=== PATIENT | female | born 1965 | race Caucasian/White ===

== ENCOUNTER 2019-01-06 23:17 | Inpatient (IN) | payer MEDICARE, OTHER ==
[~2019-01-06] VITALS: Ht 165.1 cm; Wt 53.2 kg
[2019-01-07] VITALS (7 sets, daily range): BP systolic 100–138; BP diastolic 61–81; PULSE 16–98; RESP 17–18; Ht 165.1 cm; Wt 53.2 kg
[2019-01-07] MEDS ORDERED: LEVETIRACETAM 1000 MG (PMX) 100 ML IVPB ONE (01:30)
--- NOTE | 2019-01-07 02:04 | ERD ---
ER Documentation Chief Complaint Chief Complaint BIB RA102, C/O POSS. SEIZURE, HX SEIZURES/BRAIN TUMOR, -DOWNS, +NAUSEA, -VOMIT HPI This is a 48-year-old female brought in by rescue with complaints of seizure. Patient has history of brain tumor in the past. She said she had multiple seizures today. She said this also made her feel "weird". She denies any focal neurologic complaints. Denies any tongue biting or incontinence. Denies any other current issues. ROS All systems reviewed and are negative except as per history of present illness. Allergies Allergies: Coded Allergies: phenytoin (Verified Allergy, Unknown, 01/06/19) PMhx/Soc History of Surgery: Yes (BRAIN TUMOR) Anesthesia Reaction: No Hx Neurological Disorder: Yes (SEIZURES) Hx Respiratory Disorders: No Hx Cardiac Disorders: No Hx Psychiatric Problems: No Hx Miscellaneous Medical Probl: No Hx Alcohol Use: No Hx Substance Use: No Hx Tobacco Use: No Smoking Status: Never smoker Physical Exam Vitals Vital Signs Date Temp Pulse Resp B/P (MAP) Pulse Ox O2 O2 Flow FiO2 Time Delivery Rate 01/07/19 94 14 157/90 98 Room Air 01:00 (112) 01/06/19 98.0 108 12 157/128 98 23:17 (138) Physical Exam Const: No acute distress Head: Atraumatic Eyes: Normal Conjunctiva ENT: Normal External Ears, Nose and Mouth. Neck: Full range of motion. No meningismus. Resp: Clear to auscultation bilaterally Cardio: Regular rate and rhythm, no murmurs Abd: Soft, non tender, non distended. Normal bowel sounds Skin: No petechiae or rashes Back: No midline or flank tenderness Ext: No cyanosis, or edema Neur: Awake and alert Psych: Normal Mood and Affect Result Diagram: 01/06/19232701/06/192327 Results 24 hrs Laboratory Tests Test 01/06/19 23:28 01/06/19 23:48 White Blood Count 6.1 10^3/ul Red Blood Count 4.37 10^6/ul Hemoglobin 13.7 g/dl Hematocrit 42.5 % Mean Corpuscular Volume 97.3 fl Mean Corpuscular Hemoglobin 31.4 pg Mean Corpuscular Hemoglobin Concent 32.2 g/dl Red Cell Distribution Width 12.0 % Platelet Count 219 10^3/UL Mean Platelet Volume 11.5 fl Immature Granulocytes % 0.200 % Neutrophils % 49.0 % Lymphocytes % 37.1 % Monocytes % 9.8 % Eosinophils % 2.9 % Basophils % 1.0 % Nucleated Red Blood Cells % 0.0 /100WBC Immature Granulocytes # 0.010 10^3/ul Neutrophils # 3.0 10^3/ul Lymphocytes # 2.3 10^3/ul Monocytes # 0.6 10^3/ul Eosinophils # 0.2 10^3/ul Basophils # 0.1 10^3/ul Nucleated Red Blood Cells # 0.0 10^3/ul Sodium Level 142 mmol/L Potassium Level 4.2 mmol/L Chloride Level 103 mmol/L Carbon Dioxide Level 30 mmol/L Anion Gap 9 Blood Urea Nitrogen 24 mg/dl Creatinine 0.59 mg/dl Est Glomerular Filtrat Rate mL/min > 60 mL/min Glucose Level 125 mg/dl Calcium Level 10.2 mg/dl Total Bilirubin 0.3 mg/dl Direct Bilirubin 0.00 mg/dl Indirect Bilirubin 0.3 mg/dl Aspartate Amino Transf (AST/SGOT) 40 IU/L Alanine Aminotransferase (ALT/SGPT) 57 IU/L Alkaline Phosphatase 97 IU/L Troponin I < 0.012 ng/ml B-Type Natriuretic Peptide 33 PG/ML Total Protein 7.6 g/dl Albumin 4.6 g/dl Globulin 3.00 g/dl Albumin/Globulin Ratio 1.53 Bedside Glucose 97 mg/dL Current Medications Medications Dose Sig/Cory Start Time Status Last (Trade) Ordered Route PRN Stop Time Admin Dose Reason Admin 100 ml @ ONCE ONCE 01/07/19 DC Levetiracetam 400 mls/hr IVPB 01:30 01/07/19 01:44 Procedures/MDM EKG: Rate/Rhythm: [Normal Sinus Rhythm] QRS, ST, T-waves: [No changes consistent w/ acute ischemia] Impression: [No evidence of ischemia or arrhythmia] Chest X-ray 1V Interpreted by me: Soft Tissue: No acute abnormalities Bones: No acute abnormalities Mediastinum/Cardiac Silhouette/Lungs: [No acute abnormalities] Medical decision making: This is a very pleasant patient with multiple seizures today. She is been loaded with Keppra. Given her multiple seizures, I feel the patient is to be admitted for evaluation management. I will notify Dr. Dillon is on-call for Dr. Bard villar who the patient knows. Departure Diagnosis: Primary Impression: Seizure disorder Condition: Serious JUN MENJIVAR SpeedyRicky Jan 07, 2019 02:04
[2019-01-07] MEDS ORDERED: BACL20TA PO (07:14)
[2019-01-07] MEDS ORDERED: GABA300C16 PO (07:14)
[2019-01-07] MEDS ORDERED: MIRA50TA PO (07:15)
[2019-01-07] MEDS ORDERED: SOLI10TA2 PO (07:15)
[2019-01-07] MEDS ORDERED: [UNRECOGNIZED DRUG - CODE] PO (07:15)
[2019-01-07] MEDS ORDERED: ACETAMINOPHEN 325 MG TAB PO PRN (11:30)
[2019-01-07] MEDS ORDERED: LORAZEPAM 2 MG INJ IV PRN (11:30)
[2019-01-07] MEDS ORDERED: NON-FORMULARY/PATIENT OWN MED (Mirabegron (Myrbetriq) 50 MG) PO SCH (12:30)
--- NOTE | 2019-01-07 12:43 | HP ---
Date/Time of Note Date/Time of Note DATE: 01/07/19 TIME: 12:27 Assessment/Plan VTE Prophylaxis SCD applied (from Ns): Yes Pharmacological prophylaxis: NA/contraindicated Pharm contraindication: other Assessment/Plan Assessment/Plan -Seizure disorder. Continue Christal, Dr. Duran is asked to see patient in neurology consultation. Will obtain MRI of the brain. 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 -R sided paralysis Further recommendations based on clinical course. Plan of care discussed with Dr. Cassidy. Result Diagram: 01/06/198 01/06/198 Results 24hrs Laboratory Tests Test 01/06/19 23:28 01/06/19 23:48 White Blood Count 6.1 Red Blood Count 4.37 Hemoglobin 13.7 Hematocrit 42.5 Mean Corpuscular Volume 97.3 Mean Corpuscular Hemoglobin 31.4 Mean Corpuscular Hemoglobin Concent 32.2 Red Cell Distribution Width 12.0 Platelet Count 219 Mean Platelet Volume 11.5 H Immature Granulocytes % 0.200 Neutrophils % 49.0 Lymphocytes % 37.1 Monocytes % 9.8 Eosinophils % 2.9 Basophils % 1.0 Nucleated Red Blood Cells % 0.0 Immature Granulocytes # 0.010 Neutrophils # 3.0 Lymphocytes # 2.3 Monocytes # 0.6 Eosinophils # 0.2 Basophils # 0.1 Nucleated Red Blood Cells # 0.0 Sodium Level 142 Potassium Level 4.2 Chloride Level 103 Carbon Dioxide Level 30 Anion Gap 9 Blood Urea Nitrogen 24 H Creatinine 0.59 Est Glomerular Filtrat Rate mL/min > 60 Glucose Level 125 Calcium Level 10.2 Total Bilirubin 0.3 Direct Bilirubin 0.00 Indirect Bilirubin 0.3 Aspartate Amino Transf (AST/SGOT) 40 Alanine Aminotransferase (ALT/SGPT) 57 Alkaline Phosphatase 97 Troponin I < 0.012 B-Type Natriuretic Peptide 33 Total Protein 7.6 Albumin 4.6 Globulin 3.00 Albumin/Globulin Ratio 1.53 Bedside Glucose 97 HPI/ROS Admit Date/Time Admit Date/Time Jan 07, 2019 at 01:29 Hx of Present Illness The patient is a 53-year-old very pleasant female with history of brain tumor status post surgery and radiation in 1995. Patient with right-sided paralysis, urinary incontinence and wheelchair dependent. Patient noted to have some speech impairment last night she contributed to new onset of seizures. During the examination patient is awake alert, and oriented x3. Patient's parents are at the bedside, did state that they spoke on the phone with her daughter and her speech was not coherent last night, however, right now patient is at her baseline. Patient denies any chest pain denies shortness of breath denies any fever, chills denies any nausea vomiting, denies diarrhea constipation. PMH/Family/Social Past Medical History per HPI Medications Current Medications Lorazepam (Ativan) 1 mg Q1H PRN IV SEIZURE; Start 01/07/19 at 11:30 Acetaminophen (Tylenol Tab) 650 mg Q4H PRN PO MILD PAIN(1-3)OR ELEVATED TEMP; Start 01/07/19 at 11:30 Levetiracetam 100 ml @ 400 mls/hr Q12 IVPB ; Start 01/07/19 at 21:00 Coded Allergies: phenytoin (Verified Allergy, Unknown, 01/07/19) Past Surgical History Past Surgical Hx: other (Status post craniotomy and radiation in 1995, status post plastic surgery due to protruded hardware over the head 2 years ago.) Social History Alcohol Use: none Smoking Status: Never smoker Drug Use: none Exam/Review of Systems Vital Signs Vitals Vital Signs Date Temp Pulse Resp B/P (MAP) Pulse Ox O2 O2 Flow FiO2 Time Delivery Rate 01/07/19 98.0 93 18 138/81 99 11:54 (100) 01/07/19 Room Air 09:44 Exam Constitutional: alert, oriented Head: normocephalic Neck: supple Respiratory: clear to auscultation Cardiovascular: regular rate and rhythm Gastrointestinal: soft, non-tender Musculoskeletal: nl extremities to inspection Extremities: normal pulses Neurological: other (Right-sided paralysis) Skin: nl ZINA Cardoso Jan 07, 2019 12:37
[2019-01-07] MEDS: SOLIFENACIN 5 MG TAB PO SCH (13:14)
[2019-01-07] MEDS: GABAPENTIN 300 MG CAP PO SCH ×3 (13:14→20:24)
[2019-01-07] MEDS: FOLIC ACID 1 MG TAB PO SCH (13:27)
[2019-01-07] MEDS ORDERED: DESMOPRESSIN 0.1 MG TAB PO SCH (14:00)
--- NOTE | 2019-01-07 14:39 | CONSI ---
Assessment/Plan Assessment/Plan Assessment/Plan (Recall) 53 yo F with hx of brain tumor and other comorbidities who presents for evaluation of transient and episode L sided weakness... for which neurology is consulted. The clinical picture could be consistent with TIA vs. seizure. CTH is without acute intracranial pathology though notable for post-surgical changes P: MRI brain without contrast for further characterization EEG to evaluate for epileptiform activity ASA pending the above Hold Keppra for now Ativan IV PRN prolonged seizure or for cluster Cont medical management per primary PT/OT/ST as necessary Will follow clinically, to recommend neurologic studies, as necessary Consultation Date/Type/Reason Admit Date/Time Jan 07, 2019 at 01:29 Type of Consult Neurology Reason for Consultation seizure Requesting Provider: ZINA IBARRA Date/Time of Note DATE: 01/07/19 TIME: 14:39 Hx of Present Illness 53 yo F with hx of brain tumor s/p surgery and radiation with residual R hemiparesis who presented to the ED with c/o of seizures. History was obtained from pt and chart review. The pt states that yesterday she was talking when she noticed that her speech was impaired and that her L side became heavy. Out of concern for possible seizure, she was taken to the ED. She states that around 3 this morning, a similar episode happened where her L side became heavy and she was unable to mo ve it. She states that she was able to move it again after she received keppra. She currently endorses feeling weak and tired. Denies focal sx currently. It is additionally elsewhere noted: Hx of Present Illness The patient is a 53-year-old very pleasant female with history of brain tumor status post surgery and radiation in 1995. Patient with right-sided paralysis, urinary incontinence and wheelchair dependent. Patient noted to have some speech impairment last night she contributed to new onset of seizures. During the examination patient is awake alert, and oriented x3. Patient's parents are at the bedside, did state that they spoke on the phone with her daughter and her speech was not coherent last night, however, right now patient is at her baseline. Patient denies any chest pain denies shortness of breath denies any fever, chills denies any nausea vomiting, denies diarrhea constipation. negative unless noted otherwise in HPI: Objective Exam Vitals Vital Signs Date Temp Pulse Resp B/P (MAP) Pulse Ox O2 O2 Flow FiO2 Time Delivery Rate 01/07/19 92 12:00 01/07/19 98.0 18 138/81 99 11:54 (100) 01/07/19 Room Air 09:44 Exam PE: Gen Appearance: No Apparent Distress HEENT: Normocephalic Cardiovascular: Regular rate Lungs: Clear bilaterally Abdomen: Soft Extremities: Dry NE: The patient was alert and oriented. Language was normal. Fund of knowledge was normal. Pupils were equal and reactive to light. There was no afferent pupillary defect. Visual peters were normal. Funduscopic examination was limited. Extra-ocular movements were full. Ptosis was absent. There was no nystagmus. Facial sensation was normal. Face was symmetric with normal strength. Hearing was intact. Palate movements were normal. Neck strength was normal. There was normal tongue bulk and speed of movement. Tone was normal. Muscle bulk was normal. I did not see fasciculations. Arms and legs were plegic on the R, mildly weak on the L. Vibration sensation was normal. Temperature and pinprick sensation was normal. Rapid alternating movements were normal. There was no dysmetria. There was no intention tremor. Gait was deferred due to bedrest. Arm and leg reflexes were 2+ and symmetric. Mondragon's sign was absent. Plantar responses were flexor. Results Result Diagram: 01/06/19232701/06/198 Results 24hrs Laboratory Tests Test 01/06/19 23:28 01/06/19 23:48 White Blood Count 6.1 Red Blood Count 4.37 Hemoglobin 13.7 Hematocrit 42.5 Mean Corpuscular Volume 97.3 Mean Corpuscular Hemoglobin 31.4 Mean Corpuscular Hemoglobin Concent 32.2 Red Cell Distribution Width 12.0 Platelet Count 219 Mean Platelet Volume 11.5 H Immature Granulocytes % 0.200 Neutrophils % 49.0 Lymphocytes % 37.1 Monocytes % 9.8 Eosinophils % 2.9 Basophils % 1.0 Nucleated Red Blood Cells % 0.0 Immature Granulocytes # 0.010 Neutrophils # 3.0 Lymphocytes # 2.3 Monocytes # 0.6 Eosinophils # 0.2 Basophils # 0.1 Nucleated Red Blood Cells # 0.0 Sodium Level 142 Potassium Level 4.2 Chloride Level 103 Carbon Dioxide Level 30 Anion Gap 9 Blood Urea Nitrogen 24 H Creatinine 0.59 Est Glomerular Filtrat Rate mL/min > 60 Glucose Level 125 Calcium Level 10.2 Total Bilirubin 0.3 Direct Bilirubin 0.00 Indirect Bilirubin 0.3 Aspartate Amino Transf (AST/SGOT) 40 Alanine Aminotransferase (ALT/SGPT) 57 Alkaline Phosphatase 97 Troponin I < 0.012 B-Type Natriuretic Peptide 33 Total Protein 7.6 Albumin 4.6 Globulin 3.00 Albumin/Globulin Ratio 1.53 Bedside Glucose 97 Past Medical History reviewed Home Meds Reported Medications Solifenacin* (Vesicare*) 10 Mg Tablet, 10 MG PO DAILY, TAB 01/07/19 Mirabegron (Myrbetriq) 50 Mg Tab.er.24h, 50 MG PO DAILY, TAB 01/07/19 Desmopressin Acetate* (Ddavp*) 0.1 Mg Tablet, 0.1 MG PO DAILY, #60 TAB 01/07/19 Gabapentin* (Gabapentin*) 300 Mg Capsule, 300 MG PO QID, #60 CAP 01/07/19 Baclofen* (Baclofen*) 20 Mg Tablet, 20 MG PO BID, TAB 01/07/19 Medications Current Medications Lorazepam (Ativan) 1 mg Q1H PRN IV SEIZURE; Start 01/07/19 at 11:30 Acetaminophen (Tylenol Tab) 650 mg Q4H PRN PO MILD PAIN(1-3)OR ELEVATED TEMP; Start 01/07/19 at 11:30 Levetiracetam 100 ml @ 400 mls/hr Q12 IVPB ; Start 01/07/19 at 21:00 Baclofen (Lioresal) 20 mg BID PO ; Start 01/07/19 at 21:00 Gabapentin (Neurontin) 300 mg QID PO Last administered on 01/07/19at 13:14; Admin Dose 300 MG; Start 01/07/19 at 13:00 Solifenacin (Vesicare) 10 mg DAILY PO Last administered on 01/07/19at 13:14; Admin Dose 10 MG; Start 01/07/19 at 13:30 Miscellaneous Information 50 mg DAILY PO ; Start 01/07/19 at 12:30; Status UNV Desmopressin Acetate (Ddavp) 0.1 mg DAILY PO ; Start 01/07/19 at 22:00 Folic Acid (Folic Acid) 1 mg DAILY PO Last administered on 01/07/19at 13:27; Admin Dose 1 MG; Start 01/07/19 at 13:30 Allergies: Coded Allergies: phenytoin (Verified Allergy, Unknown, 01/07/19) Past Surgical History reviewed Past Surgical Hx: other (Status post craniotomy and radiation in 1995, status post plastic surgery due to protruded hardware over the head 2 years ago.) Social History reviewed Alcohol Use: none Smoking Status: Never smoker Drug Use: none VIRIDIANA HOOVER NP Jan 07, 2019 14:39
[2019-01-07] MEDS: MIRABEGRON 50 MG XX SCH (17:00)
[2019-01-07] MEDS: [UNRECOGNIZED DRUG - OTHER] XX SCH (17:00)
[2019-01-07] MEDS: BACLOFEN 10 MG TAB PO SCH (20:24)
[2019-01-07] MEDS ORDERED: PATIENT'S OWN MEDICATION PO SCH (21:00)
[2019-01-07] MEDS ORDERED: LEVETIRACETAM 500 MG (PMX) 100 ML IVPB SCH (21:00)
[2019-01-07] MEDS: DESMOPRESSIN 0.1 MG TAB PO SCH (21:36)
[2019-01-08] VITALS (9 sets, daily range): BP systolic 115–130; BP diastolic 57–73; PULSE 79–101; RESP 17–18
[2019-01-08] MEDS: [UNRECOGNIZED DRUG - OTHER] XX SCH ×2 (01:00→09:00)
[2019-01-08] MEDS: MIRABEGRON 50 MG XX SCH ×2 (01:00→09:00)
--- NOTE | 2019-01-08 06:51 | EEG ---
EEG NOTE Report Details DATE OF TEST: 01/07/19 HISTORY: The patient is a 53-year-old F who presents with episodic weakness. This EEG is requested to evaluate for seizures. SEDATION: None. CONDITIONS OF RECORDING: This EEG was recorded digitally on the [employer] machine, using the [employer] 10-20 System of electrodes plus anterior temporals and [place]. STATES SAMPLED: Wakefulness and sleep. FINDINGS: There is a left frontal breach artifact. There is left temporal slowing. During wakefulness, there is a 8.5 Hz posterior dominant rhythm. The normal [id number] frequency-amplitude gradient was absent. Photic stimulation does not elicit any definite driving responses or epileptiform discharges. Hyperventilation, performed with good effort, produces a negligible change in the background. The patient passed into sleep, reaching stage II, characterized by normal and symmetrical vertex waves and spindles. No asymmetries, focal abnormalities or epileptiform discharges were seen. Incidentally, the single-channel manager monitoring did not reveal any obvious cardiac arrhythmia. IMPRESSION: Abnormal electroencephalogram due to: left frontal breach artifact and left temporal slowing. COMMENT: A breach artifact indicates a skull defect. Focal left temporal slowing indicates cortical dysfunction in that region, of nonspecific etiology. NIKITA JASON Jan 08, 2019 06:51
[2019-01-08] MEDS: SOLIFENACIN 5 MG TAB PO SCH (09:49)
[2019-01-08] MEDS: FOLIC ACID 1 MG TAB PO SCH (09:52)
[2019-01-08] MEDS: GABAPENTIN 300 MG CAP PO SCH ×4 (09:52→21:22)
[2019-01-08] MEDS: ASPIRIN 81 MG TAB PO SCH (09:52)
[2019-01-08] MEDS: BACLOFEN 10 MG TAB PO SCH ×2 (09:52→21:14)
--- NOTE | 2019-01-08 14:55 | CONS ---
Assessment/Plan Assessment/Plan Assessment/Plan (Recall) 53 yo F with hx of brain tumor and other comorbidities who presents for evaluation of transient and episode L sided weakness... for which neurology is consulted. The clinical picture is concerning for TIA vs. seizure. 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 EEG is without epileptiform activity, though notable for left frontal breach artifact and left temporal slowing. P: Cont ASA for stroke prevention for now. Add lipitor for the same Add lipid panel, ESR, RPR Resume Keppra empirically for seizure ppx, at least in the short-term Ativan IV PRN prolonged seizure or for cluster Other medical management per primary PT/OT/ST as necessary Will follow clinically, to recommend neurologic studies, as necessary Consultation Date/Type/Reason Admit Date/Time Jan 07, 2019 at 01:29 Type of Consult Neurology Reason for Consultation seizure Requesting Provider: ZINA IBARRA Date/Time of Note DATE: 01/08/19 TIME: 14:54 24 HR Interval Summary Free Text/Dictation Continues acute care. S/p MRI brain, EEG. No further reports of seizure activity Exam/Review of Systems Exam Vitals Vital Signs Date Temp Pulse Resp B/P (MAP) Pulse Ox O2 O2 Flow FiO2 Time Delivery Rate 01/08/19 96 12:25 01/08/19 98.2 18 130/57 98 12:00 (81) 01/07/19 Room Air 09:44 Intake and Output 01/07/19 01/07/19 01/08/19 1515:00 23:00 07:00 IntakeIntake Total 400 ml 450 ml BalanceBalance 400 ml 450 ml Exam PE: Gen Appearance: No Apparent Distress HEENT: Normocephalic Cardiovascular: Regular rate Lungs: Clear bilaterally Abdomen: Soft Extremities: Dry NE: The patient was alert and oriented. Language was normal. Fund of knowledge was normal. Pupils were equal and reactive to light. There was no afferent pupillary defect. Visual peters were normal. Funduscopic examination was limited. Extra-ocular movements were full. Ptosis was absent. There was no nystagmus. Facial sensation was normal. Face was symmetric with normal strength. Hearing was intact. Palate movements were normal. Neck strength was normal. There was normal tongue bulk and speed of movement. Tone was normal. Muscle bulk was normal. I did not see fasciculations. Arms and legs were plegic on the R, mildly weak on the L. Vibration sensation was normal. Temperature and pinprick sensation was normal. Rapid alternating movements were normal. There was no dysmetria. There was no intention tremor. Gait was deferred due to bedrest. Arm and leg reflexes were 2+ and symmetric. Mondragon's sign was absent. Plantar responses were flexor. Results Result Diagram: 01/08/19 0726 01/08/19 0555 Results 24hrs Laboratory Tests Test 01/08/19 05:55 01/08/19 07:26 Sodium Level 140 Potassium Level 4.8 Chloride Level 107 Carbon Dioxide Level 26 Anion Gap 7 Blood Urea Nitrogen 23 H Creatinine 0.51 Est Glomerular Filtrat Rate mL/min > 60 Glucose Level 92 Calcium Level 9.7 White Blood Count 6.2 Red Blood Count 4.22 Hemoglobin 13.4 Hematocrit 40.9 Mean Corpuscular Volume 96.9 Mean Corpuscular Hemoglobin 31.8 Mean Corpuscular Hemoglobin Concent 32.8 Red Cell Distribution Width 12.2 Platelet Count 200 Mean Platelet Volume 11.4 H Immature Granulocytes % 0.200 Neutrophils % 60.6 Lymphocytes % 26.5 Monocytes % 8.9 Eosinophils % 2.8 Basophils % 1.0 Nucleated Red Blood Cells % 0.0 Immature Granulocytes # 0.010 Neutrophils # 3.8 Lymphocytes # 1.6 Monocytes # 0.6 Eosinophils # 0.2 Basophils # 0.1 Nucleated Red Blood Cells # 0.0 Medications Medication Current Medications Lorazepam (Ativan) 1 mg Q1H PRN IV SEIZURE; Start 01/07/19 at 11:30 Acetaminophen (Tylenol Tab) 650 mg Q4H PRN PO MILD PAIN(1-3)OR ELEVATED TEMP; Start 01/07/19 at 11:30 Baclofen (Lioresal) 20 mg BID PO Last administered on 01/08/19at 09:52; Admin Dose 20 MG; Start 01/07/19 at 21:00 Gabapentin (Neurontin) 300 mg QID PO Last administered on 01/08/19at 13:08; Admin Dose 300 MG; Start 01/07/19 at 13:00 Solifenacin (Vesicare) 10 mg DAILY PO Last administered on 01/08/19 09:49; Admin Dose 10 MG; Start 01/07/19 at 13:30 Desmopressin Acetate (Ddavp) 0.1 mg DAILY PO Last administered on 01/07/19 21:36; Admin Dose 0.1 MG; Start 01/07/19 at 22:00 Folic Acid (Folic Acid) 1 mg DAILY PO Last administered on 01/08/19 09:52; Admin Dose 1 MG; Start 01/07/19 at 13:30 Aspirin (Aspirin) 81 mg DAILY PO Last administered on 01/08/19 09:52; Admin Dose 81 MG; Start 01/08/19 at 09:00 Miscellaneous Information (*Order Clarification Bulletin) MEDICATION REQUIRES CLARIFICATI... Q8H XX ; Start 01/07/19 at 17:00 Patient Own Medication 1 ea QHS PO ; Start 01/07/19 at 21:00; Status UNV VIRIDIANA HOOVER NP Jan 08, 2019 14:54 NIKITA JASON Jan 08, 2019 19:59
--- NOTE | 2019-01-08 19:25 | PN ---
Date/Time of Note Date/Time of Note DATE: 01/08/19 TIME: 19:25 Assessment/Plan VTE Prophylaxis Risk score (from Ns)>0 risk: 5 SCD applied (from Ns): Yes Pharmacological prophylaxis: NA/contraindicated Pharm contraindication: other Lines/Catheters IV Catheter Type (from [facility]): Peripheral IV Urinary Cath still in place: No Assessment/Plan Hospital Course No seizure activity reported, MRI brain noted. Assessment/Plan -Seizure vs TIA. Continue Christal, Dr. Duran is asked to see patient in neurology consultation. Continue PT,OT. 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 -R sided paralysis Further recommendations based on clinical course. Plan of care discussed with Dr. Cassidy. Result Diagram: 01/08/19 0726 01/08/19 0555 Results 24hrs Laboratory Tests Test 01/08/19 05:55 01/08/19 07:26 Sodium Level 140 Potassium Level 4.8 Chloride Level 107 Carbon Dioxide Level 26 Anion Gap 7 Blood Urea Nitrogen 23 H Creatinine 0.51 Est Glomerular Filtrat Rate mL/min > 60 Glucose Level 92 Calcium Level 9.7 White Blood Count 6.2 Red Blood Count 4.22 Hemoglobin 13.4 Hematocrit 40.9 Mean Corpuscular Volume 96.9 Mean Corpuscular Hemoglobin 31.8 Mean Corpuscular Hemoglobin Concent 32.8 Red Cell Distribution Width 12.2 Platelet Count 200 Mean Platelet Volume 11.4 H Immature Granulocytes % 0.200 Neutrophils % 60.6 Lymphocytes % 26.5 Monocytes % 8.9 Eosinophils % 2.8 Basophils % 1.0 Nucleated Red Blood Cells % 0.0 Immature Granulocytes # 0.010 Neutrophils # 3.8 Lymphocytes # 1.6 Monocytes # 0.6 Eosinophils # 0.2 Basophils # 0.1 Nucleated Red Blood Cells # 0.0 Exam/Review of Systems Exam Vitals Vital Signs Date Temp Pulse Resp B/P (MAP) Pulse Ox O2 O2 Flow FiO2 Time Delivery Rate 01/08/19 101 17:03 01/08/19 98.3 17 124/71 96 15:40 (88) 01/07/19 Room Air 09:44 Intake and Output 01/07/19 01/07/19 01/08/19 1515:00 23:00 07:00 IntakeIntake Total 400 ml 450 ml BalanceBalance 400 ml 450 ml Exam Constitutional: alert, oriented Respiratory: clear to auscultation Cardiovascular: regular rate and rhythm Gastrointestinal: soft, non-tender Musculoskeletal: nl extremities to inspection Extremities: normal pulses Neurological: other (Right-sided paralysis) Skin: nl turgor Results Results 24hrs Laboratory Tests Test 01/08/19 05:55 01/08/19 07:26 Sodium Level 140 Potassium Level 4.8 Chloride Level 107 Carbon Dioxide Level 26 Anion Gap 7 Blood Urea Nitrogen 23 H Creatinine 0.51 Est Glomerular Filtrat Rate mL/min > 60 Glucose Level 92 Calcium Level 9.7 White Blood Count 6.2 Red Blood Count 4.22 Hemoglobin 13.4 Hematocrit 40.9 Mean Corpuscular Volume 96.9 Mean Corpuscular Hemoglobin 31.8 Mean Corpuscular Hemoglobin Concent 32.8 Red Cell Distribution Width 12.2 Platelet Count 200 Mean Platelet Volume 11.4 H Immature Granulocytes % 0.200 Neutrophils % 60.6 Lymphocytes % 26.5 Monocytes % 8.9 Eosinophils % 2.8 Basophils % 1.0 Nucleated Red Blood Cells % 0.0 Immature Granulocytes # 0.010 Neutrophils # 3.8 Lymphocytes # 1.6 Monocytes # 0.6 Eosinophils # 0.2 Basophils # 0.1 Nucleated Red Blood Cells # 0.0 Medications Medication Current Medications Lorazepam (Ativan) 1 mg Q1H PRN IV SEIZURE; Start 01/07/19 at 11:30 Acetaminophen (Tylenol Tab) 650 mg Q4H PRN PO MILD PAIN(1-3)OR ELEVATED TEMP; Start 01/07/19 at 11:30 Baclofen (Lioresal) 20 mg BID PO Last administered on 01/08/19at 09:52; Admin Dose 20 MG; Start 01/07/19 at 21:00 Gabapentin (Neurontin) 300 mg QID PO Last administered on 01/08/19at 16:33; Admin Dose 300 MG; Start 01/07/19 at 13:00 Solifenacin (Vesicare) 10 mg DAILY PO Last administered on 01/08/19at 09:49; Admin Dose 10 MG; Start 01/07/19 at 13:30 Desmopressin Acetate (Ddavp) 0.1 mg DAILY PO Last administered on 01/07/19at 21:36; Admin Dose 0.1 MG; Start 01/07/19 at 22:00 Folic Acid (Folic Acid) 1 mg DAILY PO Last administered on 01/08/19at 09:52; Admin Dose 1 MG; Start 01/07/19 at 13:30 Aspirin (Aspirin) 81 mg DAILY PO Last administered on 01/08/19at 09:52; Admin Dose 81 MG; Start 01/08/19 at 09:00 Patient Own Medication 1 ea QHS PO ; Start 01/08/19 at 21:00 Atorvastatin Calcium (Lipitor) 80 mg HS PO ; Start 01/08/19 at 21:00 Multivitamins Therapeutic (Theragran) 1 tab DAILY PO ; Start 01/09/19 at 09:00 Ascorbic Acid (Vitamin C) 500 mg BID PO ; Start 01/08/19 at 21:00 ZINA IBARRA Jan 08, 2019 19:25
[2019-01-08] MEDS: ATORVASTATIN 80 MG TAB PO SCH (21:00)
[2019-01-08] MEDS: DESMOPRESSIN 0.1 MG TAB PO SCH (21:13)
[2019-01-08] MEDS: ASCORBIC ACID 500 MG TAB PO SCH (21:13)
[2019-01-08] MEDS: LEVETIRACETAM 500 MG TAB PO SCH (21:14)
[2019-01-08] MEDS: MYRBETRIQ 25 MG PO SCH (21:15)
[2019-01-09] VITALS (10 sets, daily range): BP systolic 101–112; BP diastolic 55–65; PULSE 76–97; RESP 17–22
[2019-01-09] MEDS: DESMOPRESSIN 0.1 MG TAB PO SCH (09:00)
[2019-01-09] MEDS: BACLOFEN 10 MG TAB PO SCH ×2 (09:28→21:43)
[2019-01-09] MEDS: ASCORBIC ACID 500 MG TAB PO SCH ×2 (09:28→21:43)
[2019-01-09] MEDS: SOLIFENACIN 5 MG TAB PO SCH (09:28)
[2019-01-09] MEDS: FOLIC ACID 1 MG TAB PO SCH (09:28)
[2019-01-09] MEDS: ASPIRIN 81 MG TAB PO SCH (09:28)
[2019-01-09] MEDS: MULTIVITAMINS THERAPEUTIC TAB PO SCH (09:29)
[2019-01-09] MEDS: GABAPENTIN 300 MG CAP PO SCH ×4 (09:29→21:43)
[2019-01-09] MEDS: LEVETIRACETAM 500 MG TAB PO SCH ×2 (09:29→21:43)
--- NOTE | 2019-01-09 13:05 | CONS ---
Assessment/Plan Assessment/Plan Assessment/Plan (Recall) 53 yo F with hx of brain tumor and other comorbidities who presents for evaluation of transient and episode L sided weakness... for which neurology is consulted. The clinical picture is concerning for TIA vs. seizure. 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 EEG is without epileptiform activity, though notable for left frontal breach artifact and left temporal slowing. LDL 98, ESR 10 P: Cont ASA/lipitor for secondary stroke prevention Add UA, UDS, echo Await RPR Resume Keppra empirically for seizure ppx, at least in the short-term Ativan IV PRN prolonged seizure or for cluster Other medical management per primary PT/OT/ST as necessary Will follow clinically, to recommend neurologic studies, as necessary Consultation Date/Type/Reason Admit Date/Time Jan 07, 2019 at 01:29 Type of Consult Neurology Reason for Consultation seizure Requesting Provider: ZINA IBARRA Date/Time of Note DATE: 01/09/19 TIME: 13:05 24 HR Interval Summary Free Text/Dictation Continues acute care. Exam/Review of Systems Exam Vitals Vital Signs Date Temp Pulse Resp B/P (MAP) Pulse Ox O2 O2 Flow FiO2 Time Delivery Rate 01/09/19 87 12:00 01/09/19 98.0 20 108/65 96 Room Air 11:50 (79) Intake and Output 01/08/19 01/08/19 01/09/19 1515:00 23:00 07:00 IntakeIntake Total 700 ml 500 ml BalanceBalance 700 ml 500 ml Exam PE: Gen Appearance: No Apparent Distress HEENT: Normocephalic Cardiovascular: Regular rate Lungs: Clear bilaterally Abdomen: Soft Extremities: Dry NE: The patient was alert and oriented. Language was normal. Fund of knowledge was normal. Pupils were equal and reactive to light. There was no afferent pupillary defect. Visual peters were normal. Funduscopic examination was limited. Extra-ocular movements were full. Ptosis was absent. There was no nystagmus. Facial sensation was normal. Face was symmetric with normal strength. Hearing was intact. Palate movements were normal. Neck strength was normal. There was normal tongue bulk and speed of movement. Tone was normal. Muscle bulk was normal. I did not see fasciculations. Arms and legs were plegic on the R, mildly weak on the L. Vibration sensation was normal. Temperature and pinprick sensation was normal. Rapid alternating movements were normal. There was no dysmetria. There was no intention tremor. Gait was deferred due to bedrest. Arm and leg reflexes were 2+ and symmetric. Mondragon's sign was absent. Plantar responses were flexor. Results Result Diagram: 01/08/19 0726 01/08/19 0555 Results 24hrs Laboratory Tests Test 01/09/19 05:25 Erythrocyte Sedimentation Rate 10 Triglycerides Level 54 Cholesterol Level 161 LDL Cholesterol, Calculated 98 HDL Cholesterol 52 Cholesterol/HDL Ratio 3.0 Medications Medication Current Medications Lorazepam (Ativan) 1 mg Q1H PRN IV SEIZURE; Start 01/07/19 at 11:30 Acetaminophen (Tylenol Tab) 650 mg Q4H PRN PO MILD PAIN(1-3)OR ELEVATED TEMP; Start 01/07/19 at 11:30 Baclofen (Lioresal) 20 mg BID PO Last administered on 01/09/19 09:28; Admin Dose 20 MG; Start 01/07/19 at 21:00 Gabapentin (Neurontin) 300 mg QID PO Last administered on 01/09/19 09:29; Admin Dose 300 MG; Start 01/07/19 at 13:00 Solifenacin (Vesicare) 10 mg DAILY PO Last administered on 01/09/19 09:28; Admin Dose 10 MG; Start 01/07/19 at 13:30 Desmopressin Acetate (Ddavp) 0.1 mg DAILY PO Last administered on 01/08/19 21:13; Admin Dose 0.1 MG; Start 01/07/19 at 22:00 Folic Acid (Folic Acid) 1 mg DAILY PO Last administered on 01/09/19 09:28; Admin Dose 1 MG; Start 01/07/19 at 13:30 Aspirin (Aspirin) 81 mg DAILY PO Last administered on 01/09/19 09:28; Admin Dose 81 MG; Start 01/08/19 at 09:00 Patient Own Medication 1 ea QHS PO Last administered on 01/08/19 21:15; Admin Dose 1 EA; Start 01/08/19 at 21:00 Atorvastatin Calcium (Lipitor) 80 mg HS PO ; Start 01/08/19 at 21:00 Multivitamins Therapeutic (Theragran) 1 tab DAILY PO Last administered on 01/09/19 09:29; Admin Dose 1 TAB; Start 01/09/19 at 09:00 Ascorbic Acid (Vitamin C) 500 mg BID PO Last administered on 01/09/19 09:28; Admin Dose 500 MG; Start 01/08/19 at 21:00 Levetiracetam (Keppra) 500 mg BID PO Last administered on 01/09/19 09:29; Admin Dose 500 MG; Start 01/08/19 at 21:00 VIRIDIANA HOOVER NP Jan 09, 2019 13:05
[2019-01-09] MEDS ORDERED: DOCUSATE SODIUM 100 MG CAP PO PRN (16:30)
--- NOTE | 2019-01-09 18:16 | PN ---
Date/Time of Note Date/Time of Note DATE: 01/09/19 TIME: 18:14 Assessment/Plan VTE Prophylaxis Risk score (from Nsg)>0 risk: 5 SCD applied (from Nsg): Yes Pharmacological prophylaxis: other Lines/Catheters IV Catheter Type (from Nrsg): Saline Lock Urinary Cath still in place: No Assessment/Plan Hospital Course Pt is awake, alert, no seizure activity reported,continue PT/OT, ARU eval. Plan of care dw pt, all questions answered. Assessment/Plan -Seizure vs TIA. Continue Keppra, ASA, Lipitor. Dr. Duran is following in neurology consultation. Continue PT,OT. 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 -R sided paralysis Further recommendations based on clinical course. Plan of care discussed with Dr. Cassidy. Result Diagram: 01/08/19 0726 01/08/19 0555 Results 24hrs Laboratory Tests Test 01/09/19 05:25 Erythrocyte Sedimentation Rate 10 Triglycerides Level 54 Cholesterol Level 161 LDL Cholesterol, Calculated 98 HDL Cholesterol 52 Cholesterol/HDL Ratio 3.0 Rapid Plasma Reagin NONREACTIVE Exam/Review of Systems Exam Vitals Vital Signs Date Temp Pulse Resp B/P (MAP) Pulse Ox O2 O2 Flow FiO2 Time Delivery Rate 01/09/19 97.8 79 22 101/60 96 Room Air 16:14 (74) Intake and Output 01/08/19 01/08/19 01/09/19 1515:00 23:00 07:00 IntakeIntake Total 700 ml 500 ml BalanceBalance 700 ml 500 ml Exam Constitutional: alert, oriented Respiratory: clear to auscultation Cardiovascular: regular rate and rhythm Gastrointestinal: soft, non-tender Musculoskeletal: nl extremities to inspection Extremities: normal pulses Neurological: other (Right-sided paralysis) Skin: nl turgor Results Results 24hrs Laboratory Tests Test 01/09/19 05:25 Erythrocyte Sedimentation Rate 10 Triglycerides Level 54 Cholesterol Level 161 LDL Cholesterol, Calculated 98 HDL Cholesterol 52 Cholesterol/HDL Ratio 3.0 Rapid Plasma Reagin NONREACTIVE Medications Medication Current Medications Lorazepam (Ativan) 1 mg Q1H PRN IV SEIZURE; Start 01/07/19 at 11:30 Acetaminophen (Tylenol Tab) 650 mg Q4H PRN PO MILD PAIN(1-3)OR ELEVATED TEMP; Start 01/07/19 at 11:30 Baclofen (Lioresal) 20 mg BID PO Last administered on 01/09/19 09:28; Admin Dose 20 MG; Start 01/07/19 at 21:00 Gabapentin (Neurontin) 300 mg QID PO Last administered on 01/09/19 16:34; Admin Dose 300 MG; Start 01/07/19 at 13:00 Solifenacin (Vesicare) 10 mg DAILY PO Last administered on 01/09/19 09:28; Admin Dose 10 MG; Start 01/07/19 at 13:30 Desmopressin Acetate (Ddavp) 0.1 mg DAILY PO Last administered on 01/08/19 21:13; Admin Dose 0.1 MG; Start 01/07/19 at 22:00 Folic Acid (Folic Acid) 1 mg DAILY PO Last administered on 01/09/19 09:28; Admin Dose 1 MG; Start 01/07/19 at 13:30 Aspirin (Aspirin) 81 mg DAILY PO Last administered on 01/09/19 09:28; Admin Dose 81 MG; Start 01/08/19 at 09:00 Patient Own Medication 1 ea QHS PO Last administered on 01/08/19 21:15; Admin Dose 1 EA; Start 01/08/19 at 21:00 Atorvastatin Calcium (Lipitor) 80 mg HS PO ; Start 01/08/19 at 21:00 Multivitamins Therapeutic (Theragran) 1 tab DAILY PO Last administered on 01/09/19 09:29; Admin Dose 1 TAB; Start 01/09/19 at 09:00 Ascorbic Acid (Vitamin C) 500 mg BID PO Last administered on 01/09/19 09:28; Admin Dose 500 MG; Start 01/08/19 at 21:00 Levetiracetam (Keppra) 500 mg BID PO Last administered on 01/09/19 09:29; Admin Dose 500 MG; Start 01/08/19 at 21:00 Docusate Sodium (Colace) 100 mg BID PRN PO CONSTIPATION Last administered on 01/09/19 16:34; Admin Dose 100 MG; Start 01/09/19 at 16:30 ZINA IBARRA Jan 09, 2019 18:16
[2019-01-09] MEDS: MYRBETRIQ 25 MG PO SCH (21:44)
[2019-01-09] MEDS: ATORVASTATIN 80 MG TAB PO SCH (21:47)
[2019-01-10] VITALS (8 sets, daily range): BP systolic 104–117; BP diastolic 55–69; PULSE 69–97; RESP 17–18
[2019-01-10] MEDS: FOLIC ACID 1 MG TAB PO SCH (09:12)
[2019-01-10] MEDS: BACLOFEN 10 MG TAB PO SCH (09:12)
[2019-01-10] MEDS: ASCORBIC ACID 500 MG TAB PO SCH (09:12)
[2019-01-10] MEDS: DESMOPRESSIN 0.1 MG TAB PO SCH (09:12)
[2019-01-10] MEDS: ASPIRIN 81 MG TAB PO SCH (09:12)
[2019-01-10] MEDS: MULTIVITAMINS THERAPEUTIC TAB PO SCH (09:12)
[2019-01-10] MEDS: GABAPENTIN 300 MG CAP PO SCH ×3 (09:12→16:55)
[2019-01-10] MEDS: SOLIFENACIN 5 MG TAB PO SCH (09:12)
[2019-01-10] MEDS: LEVETIRACETAM 500 MG TAB PO SCH (09:12)
--- NOTE | 2019-01-10 14:47 | CONS ---
Assessment/Plan Assessment/Plan Assessment/Plan (Recall) 53 yo F with hx of brain tumor and other comorbidities who presents for evaluation of transient and episode L sided weakness... for which neurology is consulted. The clinical picture is concerning for TIA vs. seizure. 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 EEG is without epileptiform activity, though notable for left frontal breach artifact and left temporal slowing. LDL 98, ESR 10, RPR nr, UA neg, UDS neg Echo is unrevealing. P: Cont ASA/lipitor for secondary stroke prevention Cont Keppra empirically for seizure ppx, at least in the short-term Ativan IV PRN prolonged seizure or for cluster Other medical management per primary PT/OT/ST as necessary Will follow clinically, to recommend neurologic studies, as necessary Consultation Date/Type/Reason Admit Date/Time Jan 07, 2019 at 01:29 Type of Consult Neurology Reason for Consultation seizure Requesting Provider: ZINA IBARRA Date/Time of Note DATE: 01/10/19 TIME: 14:47 24 HR Interval Summary Free Text/Dictation Continues acute care. Exam/Review of Systems Exam Vitals Vital Signs Date Temp Pulse Resp B/P (MAP) Pulse Ox O2 O2 Flow FiO2 Time Delivery Rate 01/10/19 97 12:01 01/10/19 98.4 18 117/63 99 11:35 (81) 01/09/19 Room Air 20:00 Intake and Output 01/09/19 01/09/19 01/10/19 1515:00 23:00 07:00 IntakeIntake Total 780 ml 350 ml BalanceBalance 780 ml 350 ml Exam PE: Gen Appearance: No Apparent Distress HEENT: Normocephalic Cardiovascular: Regular rate Lungs: Clear bilaterally Abdomen: Soft Extremities: Dry NE: The patient was alert and oriented. Language was normal. Fund of knowledge was normal. Pupils were equal and reactive to light. There was no afferent pupillary defect. Visual peters were normal. Funduscopic examination was limited. Extra-ocular movements were full. Ptosis was absent. There was no nystagmus. Facial sensation was normal. Face was symmetric with normal strength. Hearing was intact. Palate movements were normal. Neck strength was normal. There was normal tongue bulk and speed of movement. Tone was normal. Muscle bulk was normal. I did not see fasciculations. Arms and legs were plegic on the R, mildly weak on the L. Vibration sensation was normal. Temperature and pinprick sensation was normal. Rapid alternating movements were normal. There was no dysmetria. There was no intention tremor. Gait was deferred due to bedrest. Arm and leg reflexes were 2+ and symmetric. Mondragon's sign was absent. Plantar responses were flexor. Results Result Diagram: 01/08/19 0726 01/08/19 0555 Results 24hrs Laboratory Tests Test 01/09/19 19:35 Urine Color STRAW Urine Clarity CLEAR Urine pH 7.0 Urine Specific Jay Em 1.008 Urine Ketones NEGATIVE Urine Nitrite NEGATIVE Urine Bilirubin NEGATIVE Urine Urobilinogen NEGATIVE Urine Leukocyte Esterase NEGATIVE Urine Hemoglobin NEGATIVE Urine Glucose NEGATIVE Urine Total Protein NEGATIVE Urine Opiates Screen Negative Urine Barbiturates Negative Urine Amphetamines Screen Negative Urine Benzodiazepines Screen Negative Urine Cocaine Screen Negative Urine Cannabinoids Negative Medications Medication Current Medications Lorazepam (Ativan) 1 mg Q1H PRN IV SEIZURE; Start 01/07/19 at 11:30 Acetaminophen (Tylenol Tab) 650 mg Q4H PRN PO MILD PAIN(1-3)OR ELEVATED TEMP; Start 01/07/19 at 11:30 Baclofen (Lioresal) 20 mg BID PO Last administered on 01/10/19 09:12; Admin Dose 20 MG; Start 01/07/19 at 21:00 Gabapentin (Neurontin) 300 mg QID PO Last administered on 01/10/19 12:46; Admin Dose 300 MG; Start 01/07/19 at 13:00 Solifenacin (Vesicare) 10 mg DAILY PO Last administered on 01/10/19 09:12; Admin Dose 10 MG; Start 01/07/19 at 13:30 Desmopressin Acetate (Ddavp) 0.1 mg DAILY PO Last administered on 01/10/19 09:12; Admin Dose 0.1 MG; Start 01/07/19 at 22:00 Folic Acid (Folic Acid) 1 mg DAILY PO Last administered on 01/10/19 09:12; Admin Dose 1 MG; Start 01/07/19 at 13:30 Aspirin (Aspirin) 81 mg DAILY PO Last administered on 01/10/19 09:12; Admin Dose 81 MG; Start 01/08/19 at 09:00 Patient Own Medication 1 ea QHS PO Last administered on 01/09/19 21:44; Admin Dose 1 EA; Start 01/08/19 at 21:00 Atorvastatin Calcium (Lipitor) 80 mg HS PO Last administered on 01/09/19 21:47; Admin Dose 80 MG; Start 01/08/19 at 21:00 Multivitamins Therapeutic (Theragran) 1 tab DAILY PO Last administered on 01/10/19 09:12; Admin Dose 1 TAB; Start 01/09/19 at 09:00 Ascorbic Acid (Vitamin C) 500 mg BID PO Last administered on 01/10/19 09:12; Admin Dose 500 MG; Start 01/08/19 at 21:00 Levetiracetam (Keppra) 500 mg BID PO Last administered on 01/10/19 09:12; Admin Dose 500 MG; Start 01/08/19 at 21:00 Docusate Sodium (Colace) 100 mg BID PRN PO CONSTIPATION Last administered on 01/09/19 16:34; Admin Dose 100 MG; Start 01/09/19 at 16:30 VIRIDIANA HOOVER NP Jan 10, 2019 14:47
--- NOTE | 2019-01-10 15:48 | RADRPT ---
Echocardiogram Report Patient Name: JEFFREY BUCKLEYPatient ID: [id number] : 1965 (53y 11m)Study Date: 01/10/2019 10:49:18 AM Gender: FAccession #: [id number] Tech: Reji Coats [facility] Location: [address] Ref.Physician: VIRIDIANA HOOVER Height(Cm): BSA: Weight(Kg): Quality: AdequateOrder Physician: VIRIDIANA HOOVER Account #: Procedures: Echocardiographic Report: Transthoracic echocardiogram with complete 2D, M-Mode, and doppler examination. Indications: Stroke work up. Measurements: 2D/M Mode Doppler Measurement Value Normal Range Measurement Value Normal Range LVIDd 2D 3.7 [ 3.8 - 5.2 ] cm AV Peak Usman 1.0 [ 100.0 - 170.0 ] cm/sec LVIDs 2D 2.5 [ 2.2 - 3.5 ] cm AV Peak PG 4.0 [ 2.0 - 9.0 ] mmHg LVPWd 2D 0.8 [ 0.6 - 0.9 ] cm LVOT Peak Usman 0.8 [ 70.0 - 110.0 ] cm/sec IVSd 2D 0.9 [ 0.6 - 0.9 ] cm LVOT Peak PG 3.0 [ 2.0 - 6.0 ] mmHg AoR Diam 2D 2.5 [ 2.3 - 3.1 ] cm MV E Peak Usman 0.6 [ 60.0 - 130.0 ] cm/sec EDV 2D 57.8 [ 46.0 - 106.0 ] ml MV A Peak Usman 0.7 [ 100.0 - 120.0 ] cm/sec ESV 2D 23.0 [ 14.0 - 42.0 ] ml MV E/A 0.9 [ 0.8 - 1.5 ] ratio EF 2D 60.2 [ 54.0 - 74.0 ] percent MV Decel Time 176 [ 104 - 258 ] msec LA Dimen 2D 2.4 [ 2.7 - 3.8 ] cm Lat E` Usman 0.1 [ 10.0 - 15.0 ] cm/sec Lateral E/E` 6.7 [ 1.0 - 2.0 ] ratio MV E/A 0.9 [ 0.8 - 1.5 ] ratio RA Pressure 3.0 mmHg Findings: Left Ventricle: Normal left ventricular systolic function. Normal left ventricular cavity size. Normal left ventricular wall thickness. Ejection fraction is visually estimated at 65 %. Tissue Doppler/Mitral Doppler indices are within normal limits. Right Ventricle: Normal right ventricular size. Normal right ventricular systolic function. Left Atrium: The left atrium is normal in size. Right Atrium: The right atrium is normal in size. Mitral Valve: Normal appearance of the mitral valve. Normal appearance and function of the mitral valve with trace physiologic regurgitation. Aortic Valve: Normal appearance of the aortic valve. No significant aortic stenosis or insufficiency. Tricuspid Valve: Normal appearance of the tricuspid valve. Unable to obtain RVSP due to minimal presence of tricuspid regurgitation. No evidence of tricuspid regurgitation. Pericardium: Normal pericardium with no significant pericardial effusion. Aorta: Normal aortic root. IVC: Normal size and normal respiratory collapse consistent with normal right atrial pressure. Conclusions: Normal left ventricular systolic function. Normal left ventricular cavity size. Normal left ventricular wall thickness. Ejection fraction is visually estimated at 65 %. Tissue Doppler/Mitral Doppler indices are within normal limits. No significant valvular stenosis or regurgitation seen. Unable to obtain RVSP due to minimal presence of tricuspid regurgitation. Normal size and normal respiratory collapse consistent with normal right atrial pressure. Electronically Signed By: Pavan Farley 2019-01-10 15:47:27 PDT
--- NOTE | 2019-01-10 22:40 | DS ---
Date/Time of Note Date/Time of Note DATE: 01/10/19 TIME: 22:37 Discharge Summary Admission/Discharge Info Admit Date/Time Jan 07, 2019 at 01:29 Discharge Date/Time Jan 10, 2019 at 18:54 Patient Condition: Stable Hx of Present Illness The patient is a 53-year-old very pleasant female with history of brain tumor status post surgery and radiation in 1995. Patient with right-sided paralysis, urinary incontinence and wheelchair dependent. Patient noted to have some speech impairment last night she contributed to new onset of seizures. During the examination patient is awake alert, and oriented x3. Patient's parents are at the bedside, did state that they spoke on the phone with her daughter and her speech was not coherent last night, however, right now patient is at her baseline. Patient denies any chest pain denies shortness of breath denies any fever, chills denies any nausea vomiting, denies diarrhea constipation. Hospital Course Pt transferred to ARU -Seizure vs TIA. 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 EEG is without epileptiform activity, though notable for left frontal breach artifact and left temporal slowing. Continue Keppra, ASA, Lipitor. Dr. Duran is following in neurology consultation. Continue PT,OT. 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 -R sided paralysis Plan of care discussed with Dr. Cassidy. Home Meds Reported Medications Solifenacin* (Vesicare*) 10 Mg Tablet, 10 MG PO DAILY, TAB 01/07/19 Mirabegron (Myrbetriq) 50 Mg Tab.er.24h, 50 MG PO DAILY, TAB 01/07/19 Desmopressin Acetate* (Ddavp*) 0.1 Mg Tablet, 0.1 MG PO DAILY, #60 TAB 01/07/19 Gabapentin* (Gabapentin*) 300 Mg Capsule, 300 MG PO QID, #60 CAP 01/07/19 Baclofen* (Baclofen*) 20 Mg Tablet, 20 MG PO BID, TAB 01/07/19 Primary Care Provider Care Physician No Primary Time spent on discharge: > 30 minutes ZINA IBARRA Jan 10, 2019 22:40
== END 2019-01-10 18:54 | DRG 101 ==
LOC: E/R 23:17 → 6WM 01-07 01:29
PROVIDERS: ADMIT Internal Medicine; ATTEND Internal Medicine
DX: G40.901 Epilepsy, unspecified, not intractable, with status epilepticus (principal); G81.91 Hemiplegia, unspecified affecting right dominant side; R32 Unspecified urinary incontinence; Z86.011 Personal history of benign neoplasm of the brain; Z92.3 Personal history of irradiation; Z99.3 Dependence on wheelchair
CPT/HCPCS: 36415; 70450; 70553; 71045; 80048; 80053; 80061; 80307; 81003; 82962; 83880; 84484; 85025; 85651; 86592; 93005; 93306; 95819; 97110; 97163; 97167; 97530; J1953

== ENCOUNTER 2019-01-10 18:46 | Inpatient (IN) | payer MEDICARE, OTHER ==
[~2019-01-10] VITALS: Ht 163.8 cm; Wt 52.5 kg
[~2019-01-10 18:46] MED LIST: BACL20TA PO; GABA300C16 PO; MIRA50TA PO; SOLI10TA2 PO; [UNRECOGNIZED DRUG - CODE] PO
[2019-01-10 20:00] VITALS: BP 108/61; PULSE 94; RESP 17
[2019-01-10] MEDS ORDERED: LACTULOSE 30ML CUP PO PRN (20:00)
[2019-01-10] MEDS ORDERED: ACETAMINOPHEN 325 MG TAB PO PRN ×2 (20:00→20:47)
[2019-01-10] MEDS ORDERED: BISACODYL 10 MG SUPP PR PRN (20:00)
[2019-01-10] MEDS ORDERED: DOCUSATE SODIUM 100 MG CAP PO PRN (20:47)
[2019-01-10] MEDS ORDERED: LORAZEPAM 2 MG INJ IV PRN (20:47)
[2019-01-10] MEDS: SENNA TAB PO SCH (21:00)
[2019-01-10] MEDS: BACLOFEN 10 MG TAB PO SCH (21:24)
[2019-01-10] MEDS: LEVETIRACETAM 500 MG TAB PO SCH (21:24)
[2019-01-10] MEDS: GABAPENTIN 300 MG CAP PO SCH (21:24)
[2019-01-10] MEDS: ASCORBIC ACID 500 MG TAB PO SCH (21:24)
[2019-01-10] MEDS: ATORVASTATIN 80 MG TAB PO SCH (21:25)
[2019-01-10] MEDS: DOCUSATE SODIUM 100 MG CAP PO SCH (21:27)
[2019-01-10 21:35] VITALS: Ht 163.8 cm; Wt 52.5 kg
[2019-01-10] MEDS: MYRBETRIQ 25 MG PO SCH (22:05)
[2019-01-11 04:31] VITALS: BP 113/62; PULSE 87; RESP 17
--- NOTE | 2019-01-11 07:48 | HP ---
Date/Time of Note Date/Time of Note DATE: 01/11/19 TIME: 07:44 Assessment/Plan VTE Prophylaxis Risk score (from [facility] [place])>0 risk: 3 SCD applied (from [facility] [place]): Yes SCD contraindicated: other Pharmacological prophylaxis: other Pharm contraindication: other Lines/Catheters IV [facility]ter Type (from [facility] Saline Lock Urinary Cath still in place: No Assessment/Plan Assessment/Plan -Seizure vs TIA. - Dr. Duran is following in neurology consultation - Continue Keppra, ASA, Lipitor. - seizure precautions - Admit to Rehab unit - Dr Singleton follows - Continue PT,OT. - Phenytoin Allergy - Malnutrition - will get dietary consult - History of brain tumor - Status post surgery and radiation more than 20 years ago. -R sided paralysis Further recommendations based on clinical course. Plan of care discussed with Dr. Cassidy. staff Result Diagram: 01/11/19 0617 Results 24hrs Laboratory Tests Test 01/10/19 21:10 01/11/19 06:17 Urine Color STRAW Urine Clarity CLEAR Urine pH 7.0 Urine Specific Glen 1.006 Urine Ketones NEGATIVE Urine Nitrite NEGATIVE Urine Bilirubin NEGATIVE Urine Urobilinogen NEGATIVE Urine Leukocyte Esterase TRACE A Urine Microscopic RBC 0 Urine Microscopic WBC 4 Urine Bacteria FEW A Urine Hemoglobin NEGATIVE Urine Glucose NEGATIVE Urine Total Protein NEGATIVE White Blood Count 5.2 Red Blood Count 4.49 Hemoglobin 14.0 Hematocrit 43.1 Mean Corpuscular Volume 96.0 Mean Corpuscular Hemoglobin 31.2 Mean Corpuscular Hemoglobin Concent 32.5 Red Cell Distribution Width 12.1 Platelet Count 214 Mean Platelet Volume 11.7 H Immature Granulocytes % 0.400 Neutrophils % 53.4 Lymphocytes % 32.2 Monocytes % 8.4 Eosinophils % 4.4 Basophils % 1.2 Nucleated Red Blood Cells % 0.0 Immature Granulocytes # 0.020 Neutrophils # 2.8 Lymphocytes # 1.7 Monocytes # 0.4 Eosinophils # 0.2 Basophils # 0.1 Nucleated Red Blood Cells # 0.0 HPI/ROS Admit Date/Time Admit Date/Time Jan 10, 2019 at 19:07 Hx of Present Illness Hx of Present Illness The patient is a 53-year-old very pleasant female with history of brain tumor status post surgery and radiation in 1995. Patient with right-sided paralysis, urinary incontinence and wheelchair dependent. Patient noted to have some speech impairment last night she contributed to new onset of seizures. During the examination patient is awake alert, and oriented x3. Patient denies any chest pain denies shortness of breath denies any fever, chills denies any nausea vomiting, denies diarrhea constipation. Patient is admitted under Dr Rodriguez. ROS All systems reviewed and are negative except as per history of present illness. Current Meds Lorazepam (Ativan) 1 mg Q1H PRN IV SEIZURE; Start 01/07/19 at 11:30 Acetaminophen (Tylenol Tab) 650 mg Q4H PRN PO MILD PAIN(1-3)OR ELEVATED TEMP; Start 01/07/19 at 11:30 Levetiracetam 100 ml @ 400 mls/hr Q12 IVPB ; Start 01/07/19 at 21:00 Allergies Coded Allergies: phenytoin (Verified Allergy, Unknown, 01/07/19) ROS Eyes: no complaints ENT: no complaints Respiratory: no complaints Cardiovascular: no complaints Gastrointestinal: no complaints Genitourinary: no complaints Musculoskeletal: restricted range of motion Neurologic: focal-weakness (roght sided weakness) Lymphatic: no complaints Psychological: nl mood/affect Immunologic: no complaints PMH/Family/Social Past Medical History History of brain tumor Seizure disorder. Urinary incontinence with neurogenic bladder. Impairments in self-care and mobility. Medications Current Medications Docusate Sodium (Colace) 100 mg BID PO Last administered on 01/10/19at 21:27; Admin Dose 100 MG; Start 01/10/19 at 21:00 Senna (Senokot) 1 tab HS PO ; Start 01/10/19 at 21:00 Lactulose (Enulose) 20 gm DAILY PRN PO CONSTIPATION; Start 01/10/19 at 20:00 Bisacodyl (Dulcolax Supp) 10 mg DAILY PRN [place] CONSTIPATION; Start 01/10/19 at 20:00 Lorazepam (Ativan) 1 mg Q1H PRN IV SEIZURE; Start 01/10/19 at 20:47 Acetaminophen (Tylenol Tab) 650 mg Q4H PRN PO MILD PAIN(1-3)OR ELEVATED TEMP; Start 01/10/19 at 20:47 Baclofen (Lioresal) 20 mg BID PO Last administered on 01/10/19at 21:24; Admin Dose 20 MG; Start 01/10/19 at 20:47 Gabapentin (Neurontin) 300 mg QID PO Last administered on 01/10/19at 21:24; Admin Dose 300 MG; Start 01/10/19 at 20:47 Solifenacin (Vesicare) 10 mg DAILY PO ; Start 01/10/19 at 20:47 Desmopressin Acetate (Ddavp) 0.1 mg DAILY PO ; Start 01/10/19 at 20:47 Folic Acid (Folic Acid) 1 mg DAILY PO ; Start 01/10/19 at 20:47 Aspirin (Aspirin) 81 mg DAILY PO ; Start 01/10/19 at 20:47 Patient Own Medication 1 ea QHS PO Last administered on 01/10/19at 22:05; Admin Dose 1 EA; Start 01/10/19 at 20:47 Atorvastatin Calcium (Lipitor) 80 mg HS PO Last administered on 01/10/19at 21:25; Admin Dose 80 MG; Start 01/10/19 at 20:47 Multivitamins Therapeutic (Theragran) 1 tab DAILY PO ; Start 01/10/19 at 20:47 Ascorbic Acid (Vitamin C) 500 mg BID PO Last administered on 01/10/19at 21:24; Admin Dose 500 MG; Start 01/10/19 at 20:47 Levetiracetam (Keppra) 500 mg BID PO Last administered on 01/10/19at 21:24; Admin Dose 500 MG; Start 01/10/19 at 20:47 Docusate Sodium (Colace) 100 mg BID PRN PO CONSTIPATION; Start 01/10/19 at 20:47 Coded Allergies: phenytoin (Verified Allergy, Unknown, 01/07/19) Past Surgical History Past Surgical History Status post craniotomy and radiation in 1995 status post plastic surgery due to protruded hardware over the head 2 years ago Past Surgical Hx: other Family History Significant Family History: other (No family history of CAD/ HTN/SUDDEN CARDIAC ARREST/HEART ATTACK. HX DIVERTICULITIS OF MOTHER .) Social History The patient lives with a roommate and anticipates to return there upon discharge. Alcohol Use: none Smoking Status: Never smoker Drug Use: none Exam/Review of Systems Vital Signs Vitals Vital Signs Date Temp Pulse Resp B/P (MAP) Pulse Ox O2 O2 Flow FiO2 Time Delivery Rate 01/11/19 98.1 87 17 113/62 97 Room Air 04:31 (79) Intake and Output 01/10/19 01/10/19 01/11/19 1515:00 23:00 07:00 IntakeIntake Total 600 ml BalanceBalance 600 ml Exam Constitutional: alert, well developed, frail Psych: nl mood/affect Head: other (SP craniotomyy x 2) Eyes: nl lids, nl sclera ENMT: nl external ears & nose Neck: non-tender Respiratory: clear to auscultation Cardiovascular: nl pulses, other (s1s2) Gastrointestinal: soft, non-tender Musculoskeletal: muscle weakness, other (wheel chair bound ) Extremities: normal pulses Neurological: nl speech, focal weakness (right sided weakness), other (alert/responsive) Lymph: nontender GRECIA KRISHNAMURTHY Jan 11, 2019 07:48
[2019-01-11 08:00] VITALS: BP 118/73; PULSE 89; RESP 18
[2019-01-11] MEDS: LEVETIRACETAM 500 MG TAB PO SCH ×2 (10:40→20:17)
[2019-01-11] MEDS: DOCUSATE SODIUM 100 MG CAP PO SCH ×2 (10:40→20:17)
[2019-01-11] MEDS: DESMOPRESSIN 0.1 MG TAB PO SCH (10:40)
[2019-01-11] MEDS: FOLIC ACID 1 MG TAB PO SCH (10:40)
[2019-01-11] MEDS: GABAPENTIN 300 MG CAP PO SCH ×4 (10:40→20:17)
[2019-01-11] MEDS: ASCORBIC ACID 500 MG TAB PO SCH ×2 (10:40→20:17)
[2019-01-11] MEDS: ASPIRIN 81 MG TAB PO SCH (10:41)
[2019-01-11] MEDS: MULTIVITAMINS THERAPEUTIC TAB PO SCH (10:41)
[2019-01-11] MEDS: BACLOFEN 10 MG TAB PO SCH ×2 (10:41→20:17)
[2019-01-11] MEDS: SOLIFENACIN 5 MG TAB PO SCH (10:50)
--- NOTE | 2019-01-11 13:59 | CONS ---
DATE OF ADMISSION: 01/10/2019 DATE OF CONSULTATION: 01/11/2019 TYPE OF CONSULTATION: Rehabilitation post-admission physician evaluation. 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 ACTIVE COMORBIDITIES: 1. Seizure disorder. 2. Urinary incontinence with neurogenic bladder. 3. Impairments in self-care and mobility. HISTORY OF PRESENT ILLNESS: The patient is a very pleasant 53-year-old female with a history of brain tumors, status post resection and radiation treatment in 1995, who now presented to [facility] with expressive aphasia, increased weakness on the left and seizure activity. 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 EEG is notable for left frontal breach artifact and left temporal slowing. The patient was noted to have significant impairments in self-care and mobility as compared to baseline. The patient has now been cleared to transfer to the rehabilitation unit for comprehensive interdisciplinary rehab care. FUNCTIONAL HISTORY: Prior to recent events, the patient was modified independent at the wheelchair level. She reports at home she required minimal assistance for transfers. Currently, she is a max to total assist for self-care and mobility tasks. I have reviewed the preadmission screen and patient's current functional status is consistent with the preadmission screen. FAMILY AND SOCIAL HISTORY: The patient lives with a roommate and hopes to return there upon discharge. PAST MEDICAL HISTORY: 1. History of brain tumor, status post craniotomy resection and radiation in 1995. 2. Urinary incontinence. CURRENT MEDICATIONS: 1. Vitamin C 500 mg p.o. b.i.d. 2. Aspirin 81 mg p.o. daily. 3. Lipitor 80 mg p.o. at bedtime. 4. Baclofen 20 mg p.o. b.i.d. 5. DDAVP 0.1 mg p.o. daily. 6. Colace 100 mg p.o. b.i.d. p.r.n. 7. Folic acid 1 mg p.o. daily. 8. Neurontin 300 mg p.o. q.i.d. 9. Keppra 500 mg p.o. b.i.d. 10. Ativan p.r.n. 11. Multivitamin 1 tab p.o. daily. 12. Myrbetriq 1 p.o. at bedtime. 13. VESIcare 10 mg p.o. daily. ALLERGIES: DILANTIN. PHYSICAL EXAMINATION: VITAL SIGNS: She is currently afebrile with stable vital signs. HEENT: Extraocular motions appear intact. Oropharynx is clear. NECK: Supple. LUNGS: Clear anteriorly. CARDIAC: S1, S2. ABDOMEN: Soft, nontender. Positive bowel sounds. NEUROLOGIC: She is awake and alert. She will follow simple 1-step commands. She has 3-object recall. She demonstrates antigravity strength in the left upper and lower extremity. The right upper extremity and flexor positioning with increased tone. In the right lower extremity, she has 2+ strength in hip flexion, extension, knee flexion, extension. She does have impaired dorsiflexion and plantar flexion. PLAN: The patient has been admitted for comprehensive interdisciplinary acute rehab and is anticipated to tolerate 3 hours of daily therapy in divided doses for at least 5/7 days a week. The treatment plan will include: 1. Physical therapy to focus on bed mobility, transfers and wheelchair mobility with the goal of having the patient return to her baseline standby assist at wheelchair level and minimal assist for transfers. 2. Occupational therapy to focus on hygiene, grooming, dressing, bathing and toileting activities with goal of having the patient return to her standby assist at the wheelchair level. 3. Neuropsychology for full cognitive assessment and retraining in addition to oversight of cognitive program. 4. Speech therapy for full cognitive assessment with the goal of having patient return to her baseline cognition. 5. Rehabilitation nursing for carryover of therapeutic interventions, the goal of continent of bowel and bladder program with the goal of continent of bladder, goal of improved the skin integrity and patient and family education with regards to the aforementioned issues. As a board certified client relation specialist in physical medicine and rehabilitation medicine, I attest that this patient does qualify for an interdisciplinary acute rehabilitation unit stay and is best managed at this level of care for continued medical monitoring given the recent events in addition to interdisciplinary rehab with goals as outlined above. The patient is anticipated to make reasonable goals in a reasonable period of time. After a thorough review of her medical records and full examination, I believe that this patient does meet criteria for acute rehabilitation unit level of stay at the level of care under [facility] guidelines. Dictated By: SYED DEE/NTS Conf#: [id number] DID#: [id number] CC: JAMMIE DOBSON MD;*EndCC* MTDD
[2019-01-11] MEDS: ATORVASTATIN 80 MG TAB PO SCH (20:17)
[2019-01-11] MEDS: MYRBETRIQ 25 MG PO SCH (20:17)
[2019-01-11] MEDS: SENNA TAB PO SCH (20:19)
[2019-01-11 20:20] VITALS: BP 111/65; PULSE 95; RESP 17
[2019-01-12 02:00] VITALS: BP 114/68; PULSE 86; RESP 18
[2019-01-12 08:00] VITALS: BP 108/60; PULSE 85; RESP 19
[2019-01-12] MEDS: LEVETIRACETAM 500 MG TAB PO SCH ×2 (09:06→21:49)
[2019-01-12] MEDS: BACLOFEN 10 MG TAB PO SCH ×2 (09:06→21:49)
[2019-01-12] MEDS: DESMOPRESSIN 0.1 MG TAB PO SCH (09:06)
[2019-01-12] MEDS: ASPIRIN 81 MG TAB PO SCH (09:06)
[2019-01-12] MEDS: GABAPENTIN 300 MG CAP PO SCH ×4 (09:06→21:49)
[2019-01-12] MEDS: ASCORBIC ACID 500 MG TAB PO SCH ×2 (09:06→21:49)
[2019-01-12] MEDS: FOLIC ACID 1 MG TAB PO SCH (09:06)
[2019-01-12] MEDS: DOCUSATE SODIUM 100 MG CAP PO SCH ×2 (09:06→21:49)
[2019-01-12] MEDS: MULTIVITAMINS THERAPEUTIC TAB PO SCH (09:06)
[2019-01-12] MEDS: SOLIFENACIN 5 MG TAB PO SCH (09:06)
--- NOTE | 2019-01-12 10:23 | PN ---
Date/Time of Note Date/Time of Note DATE: 01/12/19 TIME: 10:21 Subjective Up to commode with staff this morning Objective Vital Signs Date Temp Pulse Resp B/P (MAP) Pulse Ox O2 O2 Flow FiO2 Time Delivery Rate 01/12/19 98.1 86 18 114/68 97 Room Air 02:00 (83) Intake and Output 01/11/19 01/11/19 01/12/19 1515:00 23:00 07:00 IntakeIntake Total 480 ml 300 ml BalanceBalance 480 ml 300 ml Exam max/dependent transfers max/dep toilet transfers Results/Medications Result Diagram: 01/11/1961601/11/19616 Medications Current Medications Docusate Sodium (Colace) 100 mg BID PO Last administered on 01/12/19at 09:06; Admin Dose 100 MG; Start 01/10/19 at 21:00 Senna (Senokot) 1 tab HS PO ; Start 01/10/19 at 21:00 Lactulose (Enulose) 20 gm DAILY PRN PO CONSTIPATION; Start 01/10/19 at 20:00 Bisacodyl (Dulcolax Supp) 10 mg DAILY PRN [place] CONSTIPATION; Start 01/10/19 at 20:00 Lorazepam (Ativan) 1 mg Q1H PRN IV SEIZURE; Start 01/10/19 at 20:47 Acetaminophen (Tylenol Tab) 650 mg Q4H PRN PO MILD PAIN(1-3)OR ELEVATED TEMP; Start 01/10/19 at 20:47 Baclofen (Lioresal) 20 mg BID PO Last administered on 01/12/19 09:06; Admin Dose 20 MG; Start 01/10/19 at 20:47 Gabapentin (Neurontin) 300 mg QID PO Last administered on 01/12/19 09:06; Admin Dose 300 MG; Start 01/10/19 at 20:47 Solifenacin (Vesicare) 10 mg DAILY PO Last administered on 01/12/19 09:06; Admin Dose 10 MG; Start 01/10/19 at 20:47 Desmopressin Acetate (Ddavp) 0.1 mg DAILY PO Last administered on 01/12/19 09:06; Admin Dose 0.1 MG; Start 01/10/19 at 20:47 Folic Acid (Folic Acid) 1 mg DAILY PO Last administered on 01/12/19 09:06; Admin Dose 1 MG; Start 01/10/19 at 20:47 Aspirin (Aspirin) 81 mg DAILY PO Last administered on 01/12/19 09:06; Admin Dose 81 MG; Start 01/10/19 at 20:47 Patient Own Medication 1 ea QHS PO Last administered on 01/11/19 20:17; Admin Dose 1 EA; Start 01/10/19 at 20:47 Atorvastatin Calcium (Lipitor) 80 mg HS PO Last administered on 01/11/19 20:17; Admin Dose 80 MG; Start 01/10/19 at 20:47 Multivitamins Therapeutic (Theragran) 1 tab DAILY PO Last administered on 01/12/19 09:06; Admin Dose 1 TAB; Start 01/10/19 at 20:47 Ascorbic Acid (Vitamin C) 500 mg BID PO Last administered on 01/12/19 09:06; Admin Dose 500 MG; Start 01/10/19 at 20:47 Levetiracetam (Keppra) 500 mg BID PO Last administered on 01/12/19 09:06; Admin Dose 500 MG; Start 01/10/19 at 20:47 Docusate Sodium (Colace) 100 mg BID PRN PO CONSTIPATION; Start 01/10/19 at 20:47 Assessment/Plan Additional Assessment/Plan Rehab- 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 Continue rehab activities as toleratated Seizure disorder-seizure precautions Urinary incontinence with neurogenic bladder-bladder program SYED ROMO MD Jan 12, 2019 10:23
[2019-01-12 14:00] VITALS: BP 129/66; PULSE 80; RESP 18
[2019-01-12] MEDS ORDERED: EUCERIN 113 GM CR TOP PRN ×2 (14:30→16:56)
--- NOTE | 2019-01-12 14:44 | PN ---
Date/Time of Note Date/Time of Note DATE: 01/12/19 TIME: 14:44 Assessment/Plan VTE Prophylaxis Risk score (from [facility])>0 risk: 3 SCD applied (from [facility] [place]): Yes SCD contraindicated: other Pharmacological prophylaxis: other Pharm contraindication: other Lines/Catheters IV Catheter Type (from [facility] Saline Lock Urinary Cath still in place: No Assessment/Plan Assessment/Plan -Seizure vs TIA. Continue Keppra, ASA, Lipitor. Dr. Duran is following in neurology consultation. Continue PT,OT. - seizure precautions -History of brain tumor status post surgery and radiation more than 20 years ago. -R sided paralysis - Malnutrition - dietary consult Further recommendations based on clinical course. Plan of care discussed with Dr. Cassidy. Result Diagram: 01/11/1961601/11/19616 Subjective 24 Hr Interval Summary Free Text/Dictation nad afebrile sitting up in wheel chair- seems comfortable no events overnight dw staff ENT: no complaints Respiratory: no complaints Cardiovascular: no complaints Gastrointestinal: no complaints Genitourinary: no complaints Musculoskeletal: restricted range of motion Skin: no complaints Neurologic: other (sides weakness) Lymphatic: no complaints Exam/Review of Systems Exam Vitals Vital Signs Date Temp Pulse Resp B/P (MAP) Pulse Ox O2 O2 Flow FiO2 Time Delivery Rate 01/12/19 98.1 86 18 114/68 97 Room Air 02:00 (83) Intake and Output 01/11/19 01/11/19 01/12/19 1515:00 23:00 07:00 IntakeIntake Total 480 ml 300 ml BalanceBalance 480 ml 300 ml Constitutional: alert, other (cachexia) Psych: nl mood/affect Eyes: nl lids, nl sclera ENMT: nl external ears & nose Neck: non-tender Respiratory: clear to auscultation Cardiovascular: nl pulses, other (s1s2) Gastrointestinal: soft, non-tender Musculoskeletal: muscle weakness, range of motion Extremities: normal pulses Neurological: nl speech, focal weakness (right sided paralysis) Lymph: nontender Medications Medication Current Medications Docusate Sodium (Colace) 100 mg BID PO Last administered on 01/12/19at 09:06; Admin Dose 100 MG; Start 01/10/19 at 21:00 Senna (Senokot) 1 tab HS PO ; Start 01/10/19 at 21:00 Lactulose (Enulose) 20 gm DAILY PRN PO CONSTIPATION; Start 01/10/19 at 20:00 Bisacodyl (Dulcolax Supp) 10 mg DAILY PRN [place] CONSTIPATION; Start 01/10/19 at 20:00 Lorazepam (Ativan) 1 mg Q1H PRN IV SEIZURE; Start 01/10/19 at 20:47 Acetaminophen (Tylenol Tab) 650 mg Q4H PRN PO MILD PAIN(1-3)OR ELEVATED TEMP; Start 01/10/19 at 20:47 Baclofen (Lioresal) 20 mg BID PO Last administered on 01/12/19 09:06; Admin Dose 20 MG; Start 01/10/19 at 20:47 Gabapentin (Neurontin) 300 mg QID PO Last administered on 01/12/19 13:01; Admin Dose 300 MG; Start 01/10/19 at 20:47 Solifenacin (Vesicare) 10 mg DAILY PO Last administered on 01/12/19 09:06; Admin Dose 10 MG; Start 01/10/19 at 20:47 Folic Acid (Folic Acid) 1 mg DAILY PO Last administered on 01/12/19 09:06; Admin Dose 1 MG; Start 01/10/19 at 20:47 Aspirin (Aspirin) 81 mg DAILY PO Last administered on 01/12/19 09:06; Admin Dose 81 MG; Start 01/10/19 at 20:47 Patient Own Medication 1 ea QHS PO Last administered on 01/11/19 20:17; Admin Dose 1 EA; Start 01/10/19 at 20:47 Atorvastatin Calcium (Lipitor) 80 mg HS PO Last administered on 01/11/19 20:17; Admin Dose 80 MG; Start 01/10/19 at 20:47 Multivitamins Therapeutic (Theragran) 1 tab DAILY PO Last administered on 01/12/19 09:06; Admin Dose 1 TAB; Start 01/10/19 at 20:47 Ascorbic Acid (Vitamin C) 500 mg BID PO Last administered on 01/12/19 09:06; Admin Dose 500 MG; Start 01/10/19 at 20:47 Levetiracetam (Keppra) 500 mg BID PO Last administered on 01/12/19 09:06; Admin Dose 500 MG; Start 01/10/19 at 20:47 Docusate Sodium (Colace) 100 mg BID PRN PO CONSTIPATION; Start 01/10/19 at 20:47 Desmopressin Acetate (Ddavp) 0.1 mg QHS PO ; Start 01/13/19 at 21:00 Multi-Ingredient Ointment (Eucerin Cream) 1 applic BID PRN TOP rash; Start 01/12/19 at 14:30 GRECIA KRISHNAMURTHY Jan 12, 2019 14:44
[2019-01-12 20:00] VITALS: BP 134/77; PULSE 91; RESP 18
[2019-01-12] MEDS: SENNA TAB PO SCH (21:00)
[2019-01-12] MEDS: ATORVASTATIN 80 MG TAB PO SCH (21:49)
[2019-01-12] MEDS: MYRBETRIQ 25 MG PO SCH (21:49)
[2019-01-13 08:00] VITALS: BP 109/61; PULSE 80; RESP 18
[2019-01-13] MEDS: ASPIRIN 81 MG TAB PO SCH (08:17)
[2019-01-13] MEDS: FOLIC ACID 1 MG TAB PO SCH (08:17)
[2019-01-13] MEDS: DOCUSATE SODIUM 100 MG CAP PO SCH ×2 (08:17→20:23)
[2019-01-13] MEDS: LEVETIRACETAM 500 MG TAB PO SCH ×2 (08:17→20:23)
[2019-01-13] MEDS: ASCORBIC ACID 500 MG TAB PO SCH ×2 (08:18→20:23)
[2019-01-13] MEDS: BACLOFEN 10 MG TAB PO SCH ×2 (08:18→20:23)
[2019-01-13] MEDS: GABAPENTIN 300 MG CAP PO SCH ×4 (08:18→20:21)
[2019-01-13] MEDS: MULTIVITAMINS THERAPEUTIC TAB PO SCH (08:18)
[2019-01-13] MEDS: SOLIFENACIN 5 MG TAB PO SCH (10:52)
--- NOTE | 2019-01-13 11:36 | PN ---
Date/Time of Note Date/Time of Note DATE: 01/13/19 TIME: 11:35 Assessment/Plan VTE Prophylaxis Risk score (from Ns)>0 risk: 5 SCD applied (from [facility] [place]): Yes SCD contraindicated: other Pharmacological prophylaxis: other Pharm contraindication: other Lines/Catheters IV C[facility]ter [facility] (from [facility] Saline Lock Urinary Cath still in place: No Assessment/Plan Assessment/Plan -Seizure vs TIA. Continue Keppra, ASA, Lipitor. Dr. Duran is following in neurology consultation. Continue PT,OT. - seizure precautions -History of brain tumor status post surgery and radiation more than 20 years ago. -R sided paralysis - Malnutrition - dietary consult Further recommendations based on clinical course. Plan of care discussed with Dr. Cassidy. Result Diagram: 01/13/19 0716 01/13/19 0716 Results 24hrs Laboratory Tests Test 01/13/19 07:16 White Blood Count 5.4 Red Blood Count 4.13 L Hemoglobin 12.9 Hematocrit 40.3 Mean Corpuscular Volume 97.6 Mean Corpuscular Hemoglobin 31.2 Mean Corpuscular Hemoglobin Concent 32.0 Red Cell Distribution Width 12.1 Platelet Count 191 Mean Platelet Volume 11.4 H Immature Granulocytes % 0.200 Neutrophils % 57.0 Lymphocytes % 29.4 Monocytes % 9.5 Eosinophils % 3.0 Basophils % 0.9 Nucleated Red Blood Cells % 0.0 Immature Granulocytes # 0.010 Neutrophils # 3.1 Lymphocytes # 1.6 Monocytes # 0.5 Eosinophils # 0.2 Basophils # 0.1 Nucleated Red Blood Cells # 0.0 Sodium Level 142 Potassium Level 4.1 Chloride Level 106 Carbon Dioxide Level 30 Anion Gap 6 Blood Urea Nitrogen 16 Creatinine 0.49 Est Glomerular Filtrat Rate mL/min > 60 Glucose Level 95 Calcium Level 9.5 Albumin 3.8 Subjective 24 Hr Interval Summary Free Text/Dictation nad; stable; vss sitting up in wheel chair seems comfortable wants to go home no new events reported last night dw staff Eyes: no complaints ENT: no complaints Respiratory: no complaints Cardiovascular: no complaints Gastrointestinal: no complaints Genitourinary: no complaints Musculoskeletal: restricted range of motion Skin: no complaints, skin lesions Neurologic: focal-weakness Endocrine: no complaints Lymphatic: no complaints Psychological: no complaints Exam/Review of Systems Exam Vitals Vital Signs Date Temp Pulse Resp B/P (MAP) Pulse Ox O2 O2 Flow FiO2 Time Delivery Rate 01/13/19 97.8 80 18 109/61 99 Room Air 08:00 (77) Intake and Output 01/12/19 01/12/19 01/13/19 1515:00 23:00 07:00 IntakeIntake Total 600 ml 200 ml BalanceBalance 600 ml 200 ml Constitutional: alert, frail Psych: no complaints Head: normocephalic Eyes: nl conjunctiva ENMT: nl external ears & nose Neck: non-tender Respiratory: clear to auscultation Cardiovascular: nl pulses, other Gastrointestinal: soft, non-tender Musculoskeletal: muscle weakness Neurological: focal weakness Lymph: nontender Results Results 24hrs Laboratory Tests Test 01/13/19 07:16 White Blood Count 5.4 Red Blood Count 4.13 L Hemoglobin 12.9 Hematocrit 40.3 Mean Corpuscular Volume 97.6 Mean Corpuscular Hemoglobin 31.2 Mean Corpuscular Hemoglobin Concent 32.0 Red Cell Distribution Width 12.1 Platelet Count 191 Mean Platelet Volume 11.4 H Immature Granulocytes % 0.200 Neutrophils % 57.0 Lymphocytes % 29.4 Monocytes % 9.5 Eosinophils % 3.0 Basophils % 0.9 Nucleated Red Blood Cells % 0.0 Immature Granulocytes # 0.010 Neutrophils # 3.1 Lymphocytes # 1.6 Monocytes # 0.5 Eosinophils # 0.2 Basophils # 0.1 Nucleated Red Blood Cells # 0.0 Sodium Level 142 Potassium Level 4.1 Chloride Level 106 Carbon Dioxide Level 30 Anion Gap 6 Blood Urea Nitrogen 16 Creatinine 0.49 Est Glomerular Filtrat Rate mL/min > 60 Glucose Level 95 Calcium Level 9.5 Albumin 3.8 Medications Medication Current Medications Docusate Sodium (Colace) 100 mg BID PO Last administered on 01/13/19at 08:17; Admin Dose 100 MG; Start 01/10/19 at 21:00 Senna (Senokot) 1 tab HS PO ; Start 01/10/19 at 21:00 Lactulose (Enulose) 20 gm DAILY PRN PO CONSTIPATION; Start 01/10/19 at 20:00 Bisacodyl (Dulcolax Supp) 10 mg DAILY PRN [place] CONSTIPATION; Start 01/10/19 at 20:00 Lorazepam (Ativan) 1 mg Q1H PRN IV SEIZURE; Start 01/10/19 at 20:47 Acetaminophen (Tylenol Tab) 650 mg Q4H PRN PO MILD PAIN(1-3)OR ELEVATED TEMP; Start 01/10/19 at 20:47 Baclofen (Lioresal) 20 mg BID PO Last administered on 01/13/19 08:18; Admin Dose 20 MG; Start 01/10/19 at 20:47 Gabapentin (Neurontin) 300 mg QID PO Last administered on 01/13/19 08:18; Admin Dose 300 MG; Start 01/10/19 at 20:47 Solifenacin (Vesicare) 10 mg DAILY PO Last administered on 01/13/19 10:52; Ad min Dose 10 MG; Start 01/10/19 at 20:47 Folic Acid (Folic Acid) 1 mg DAILY PO Last administered on 01/13/19 08:17; Admin Dose 1 MG; Start 01/10/19 at 20:47 Aspirin (Aspirin) 81 mg DAILY PO Last administered on 01/13/19 08:17; Admin Dose 81 MG; Start 01/10/19 at 20:47 Patient Own Medication 1 ea QHS PO Last administered on 01/12/19 21:49; Admin Dose 1 EA; Start 01/10/19 at 20:47 Atorvastatin Calcium (Lipitor) 80 mg HS PO Last administered on 01/12/19 21:49; Admin Dose 80 MG; Start 01/10/19 at 20:47 Multivitamins Therapeutic (Theragran) 1 tab DAILY PO Last administered on 01/13/19 08:18; Admin Dose 1 TAB; Start 01/10/19 at 20:47 Ascorbic Acid (Vitamin C) 500 mg BID PO Last administered on 01/13/19 08:18; Admin Dose 500 MG; Start 01/10/19 at 20:47 Levetiracetam (Keppra) 500 mg BID PO Last administered on 01/13/19 08:17; Admin Dose 500 MG; Start 01/10/19 at 20:47 Docusate Sodium (Colace) 100 mg BID PRN PO CONSTIPATION; Start 01/10/19 at 20:47 Desmopressin Acetate (Ddavp) 0.1 mg QHS PO ; Start 01/13/19 at 21:00 Multi-Ingredient Ointment (Eucerin Cream) 1 applic BID PRN TOP rash Last admini stered on 6/9/19at 08:00; Admin Dose 1 APPLIC; Start 01/12/19 at 16:56 GRECIA KRISHNAMURTHY Jan 13, 2019 11:36
[2019-01-13 20:00] VITALS: BP 126/70; PULSE 89; RESP 18
[2019-01-13] MEDS: ATORVASTATIN 80 MG TAB PO SCH (20:21)
[2019-01-13] MEDS: SENNA TAB PO SCH (20:23)
[2019-01-13] MEDS: DESMOPRESSIN 0.1 MG TAB PO SCH (20:23)
[2019-01-13] MEDS: MYRBETRIQ 25 MG PO SCH (20:24)
[2019-01-14 02:00] VITALS: BP 107/69; PULSE 84; RESP 18
[2019-01-14 08:00] VITALS: BP 126/70; PULSE 89; RESP 16
[2019-01-14] MEDS: DOCUSATE SODIUM 100 MG CAP PO SCH ×2 (09:00→20:38)
[2019-01-14] MEDS: ASPIRIN 81 MG TAB PO SCH (09:51)
[2019-01-14] MEDS: MULTIVITAMINS THERAPEUTIC TAB PO SCH (09:53)
[2019-01-14] MEDS: FOLIC ACID 1 MG TAB PO SCH (09:53)
[2019-01-14] MEDS: ASCORBIC ACID 500 MG TAB PO SCH ×2 (09:53→20:38)
[2019-01-14] MEDS: BACLOFEN 10 MG TAB PO SCH ×2 (09:54→20:38)
[2019-01-14] MEDS: GABAPENTIN 300 MG CAP PO SCH ×4 (09:54→20:38)
[2019-01-14] MEDS: LEVETIRACETAM 500 MG TAB PO SCH ×2 (09:55→20:38)
[2019-01-14] MEDS: SOLIFENACIN 5 MG TAB PO SCH (10:00)
--- NOTE | 2019-01-14 12:49 | PN ---
Date/Time of Note Date/Time of Note DATE: 01/14/19 TIME: 12:48 Subjective No new complaints Objective Vital Signs Date Temp Pulse Resp B/P (MAP) Pulse Ox O2 O2 Flow FiO2 Time Delivery Rate 01/14/19 97.8 84 18 107/69 98 Room Air 02:00 (82) Intake and Output 01/13/19 01/13/19 01/14/19 1515:00 23:00 07:00 IntakeIntake Total 600 ml BalanceBalance 600 ml Exam pulm-cta abd-soft max transfer Results/Medications Result Diagram: 01/13/19 0716 01/13/19 0716 Medications Current Medications Docusate Sodium (Colace) 100 mg BID PO Last administered on 01/13/19 20:23; Admin Dose 100 MG; Start 01/10/19 at 21:00 Senna (Senokot) 1 tab HS PO Last administered on 01/13/19 20:23; Admin Dose 1 TAB; Start 01/10/19 at 21:00 Lactulose (Enulose) 20 gm DAILY PRN PO CONSTIPATION; Start 01/10/19 at 20:00 Bisacodyl (Dulcolax Supp) 10 mg DAILY PRN [place] CONSTIPATION; Start 01/10/19 at 20:00 Lorazepam (Ativan) 1 mg Q1H PRN IV SEIZURE; Start 01/10/19 at 20:47 Acetaminophen (Tylenol Tab) 650 mg Q4H PRN PO MILD PAIN(1-3)OR ELEVATED TEMP; Start 01/10/19 at 20:47 Baclofen (Lioresal) 20 mg BID PO Last administered on 01/14/19 09:54; Admin Dose 20 MG; Start 01/10/19 at 20:47 Gabapentin (Neurontin) 300 mg QID PO Last administered on 01/14/19 09:54; Admin Dose 300 MG; Start 01/10/19 at 20:47 Solifenacin (Vesicare) 10 mg DAILY PO Last administered on 01/14/19 10:00; Admin Dose 10 MG; Start 01/10/19 at 20:47 Folic Acid (Folic Acid) 1 mg DAILY PO Last administered on 01/14/19 09:53; Admin Dose 1 MG; Start 01/10/19 at 20:47 Aspirin (Aspirin) 81 mg DAILY PO Last administered on 01/14/19 09:51; Admin D ose 81 MG; Start 01/10/19 at 20:47 Patient Own Medication 1 ea QHS PO Last administered on 01/13/19 20:24; Admin Dose 1 EA; Start 01/10/19 at 20:47 Atorvastatin Calcium (Lipitor) 80 mg HS PO Last administered on 01/13/19 20:21; Admin Dose 80 MG; Start 01/10/19 at 20:47 Multivitamins Therapeutic (Theragran) 1 tab DAILY PO Last administered on 01/14/19 09:53; Admin Dose 1 TAB; Start 01/10/19 at 20:47 Ascorbic Acid (Vitamin C) 500 mg BID PO Last administered on 01/14/19 09:53; Admin Dose 500 MG; Start 01/10/19 at 20:47 Levetiracetam (Keppra) 500 mg BID PO Last administered on 01/14/19 09:55; A dmin Dose 500 MG; Start 01/10/19 at 20:47 Docusate Sodium (Colace) 100 mg BID PRN PO CONSTIPATION; Start 01/10/19 at 20:47 Desmopressin Acetate (Ddavp) 0.1 mg QHS PO Last administered on 01/13/19 20:23; Admin Dose 0.1 MG; Start 01/13/19 at 21:00 Multi-Ingredient Ointment (Eucerin Cream) 1 applic BID PRN TOP rash Last administered on 01/13/19 08:00; Admin Dose 1 APPLIC; Start 01/12/19 at 16:56 Assessment/Plan Additional Assessment/Plan Rehab- 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 Continue rehab activities. Patient motivated Seizure disorder-seizure precautions Urinary incontinence with neurogenic bladder-bladder program SYED ROMO MD Jan 14, 2019 12:49
--- NOTE | 2019-01-14 17:51 | PN ---
Date/Time of Note Date/Time of Note DATE: 01/14/19 TIME: 17:50 Assessment/Plan VTE Prophylaxis Risk score (from Ns)>0 risk: 5 SCD applied (from Ns): Yes Pharmacological prophylaxis: other Lines/Catheters IV [facility] Type (from [facility] Saline Lock Urinary Cath still in place: No Assessment/Plan Hospital Course Patient is awake alert participates in physical and occupational therapy, no complaints. Assessment/Plan -Seizure vs TIA. 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 EEG is without epileptiform activity, though notable for left frontal breach artifact and left temporal slowing. Continue Keppra, ASA, Lipitor. Dr. Duran is following in neurology consultation. Continue PT,OT. 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 -R sided paralysis -Malnutrition Further recommendations based on clinical course. Plan of care discussed with Dr. Cassidy. Result Diagram: 01/13/19 0716 01/13/19 0716 Exam/Review of Systems Exam Vitals Vital Signs Date Temp Pulse Resp B/P (MAP) Pulse Ox O2 O2 Flow FiO2 Time Delivery Rate 01/14/19 97.8 84 18 107/69 98 Room Air 02:00 (82) Intake and Output 01/13/19 01/13/19 01/14/19 1515:00 23:00 07:00 IntakeIntake Total 600 ml BalanceBalance 600 ml Constitutional: alert, oriented Neck: supple Respiratory: clear to auscultation Cardiovascular: nl pulses Gastrointestinal: soft, non-tender Extremities: normal pulses Neurological: other (Right-sided paralysis) Medications Medication Current Medications Docusate Sodium (Colace) 100 mg BID PO Last administered on 01/13/19at 20:23; Admin Dose 100 MG; Start 01/10/19 at 21:00 Senna (Senokot) 1 tab HS PO Last administered on 01/13/19at 20:23; Admin Dose 1 TAB; Start 01/10/19 at 21:00 Lactulose (Enulose) 20 gm DAILY PRN PO CONSTIPATION; Start 01/10/19 at 20:00 Bisacodyl (Dulcolax Supp) 10 mg DAILY PRN [place] CONSTIPATION; Start 01/10/19 at 20:00 Lorazepam (Ativan) 1 mg Q1H PRN IV SEIZURE; Start 01/10/19 at 20:47 Acetaminophen (Tylenol Tab) 650 mg Q4H PRN PO MILD PAIN(1-3)OR ELEVATED TEMP; Start 01/10/19 at 20:47 Baclofen (Lioresal) 20 mg BID PO Last administered on 01/14/19 09:54; Admin Do se 20 MG; Start 01/10/19 at 20:47 Gabapentin (Neurontin) 300 mg QID PO Last administered on 01/14/19 13:39; Admin Dose 300 MG; Start 01/10/19 at 20:47 Solifenacin (Vesicare) 10 mg DAILY PO Last administered on 01/14/19 10:00; Admin Dose 10 MG; Start 01/10/19 at 20:47 Folic Acid (Folic Acid) 1 mg DAILY PO Last administered on 01/14/19 09:53; Admin Dose 1 MG; Start 01/10/19 at 20:47 Aspirin (Aspirin) 81 mg DAILY PO Last administered on 01/14/19 09:51; Admin Dose 81 MG; Start 01/10/19 at 20:47 Patient Own Medication 1 ea QHS PO Last administered on 01/13/19 20:24; Admin Dose 1 EA; Start 01/10/19 at 20:47 Atorvastatin Calcium (Lipitor) 80 mg HS PO Last administered on 01/13/19 20:21; Admin Dose 80 MG; Start 01/10/19 at 20:47 Multivitamins Therapeutic (Theragran) 1 tab DAILY PO Last administered on 01/14/19 09:53; Admin Dose 1 TAB; Start 01/10/19 at 20:47 Ascorbic Acid (Vitamin C) 500 mg BID PO Last administered on 01/14/19 09:53; Admin Dose 500 MG; Start 01/10/19 at 20:47 Levetiracetam (Keppra) 500 mg BID PO Last administered on 01/14/19 09:55; Admin Dose 500 MG; Start 01/10/19 at 20:47 Docusate Sodium (Colace) 100 mg BID PRN PO CONSTIPATION; Start 01/10/19 at 20:47 Desmopressin Acetate (Ddavp) 0.1 mg QHS PO Last administered on 6/9/19at 20:23; Admin Dose 0.1 MG; Start 01/13/19 at 21:00 Multi-Ingredient Ointment (Eucerin Cream) 1 applic BID PRN TOP rash Last administered on 01/13/19at 08:00; Admin Dose 1 APPLIC; Start 01/12/19 at 16:56 ZINA IBARRA Jan 14, 2019 17:51
[2019-01-14 20:35] VITALS: BP 126/71; PULSE 93; RESP 18
[2019-01-14] MEDS: MYRBETRIQ 25 MG PO SCH (20:37)
[2019-01-14] MEDS: DESMOPRESSIN 0.1 MG TAB PO SCH (20:38)
[2019-01-14] MEDS: SENNA TAB PO SCH (20:38)
[2019-01-14] MEDS: ATORVASTATIN 80 MG TAB PO SCH (20:38)
[2019-01-15 01:00] VITALS: BP 118/74; PULSE 89; RESP 16
[2019-01-15 08:00] VITALS: BP 101/65; PULSE 80; RESP 16
[2019-01-15] MEDS: ASCORBIC ACID 500 MG TAB PO SCH ×2 (08:22→21:02)
[2019-01-15] MEDS: FOLIC ACID 1 MG TAB PO SCH (08:22)
[2019-01-15] MEDS: ASPIRIN 81 MG TAB PO SCH (08:22)
[2019-01-15] MEDS: DOCUSATE SODIUM 100 MG CAP PO SCH ×2 (08:23→21:02)
[2019-01-15] MEDS: LEVETIRACETAM 500 MG TAB PO SCH ×2 (08:23→21:02)
[2019-01-15] MEDS: GABAPENTIN 300 MG CAP PO SCH ×4 (08:23→21:02)
[2019-01-15] MEDS: SOLIFENACIN 5 MG TAB PO SCH (08:23)
[2019-01-15] MEDS: MULTIVITAMINS THERAPEUTIC TAB PO SCH (08:23)
[2019-01-15] MEDS: BACLOFEN 10 MG TAB PO SCH ×2 (08:23→21:02)
--- NOTE | 2019-01-15 12:28 | PN ---
Date/Time of Note Date/Time of Note DATE: 01/15/19 TIME: 12:28 Subjective Motivated for activities Objective Vital Signs Date Temp Pulse Resp B/P (MAP) Pulse Ox O2 O2 Flow FiO2 Time Delivery Rate 01/15/19 97.4 80 16 101/65 98 Room Air 08:00 (77) Intake and Output 01/14/19 01/14/19 01/15/19 1515:00 23:00 07:00 IntakeIntake Total 240 ml 200 ml 200 ml BalanceBalance 240 ml 200 ml 200 ml Exam pulm-cta max transfer Results/Medications Result Diagram: 01/13/1916 01/13/1916 Medications Current Medications Docusate Sodium (Colace) 100 mg BID PO Last administered on 01/15/19 08:23; Admin Dose 100 MG; Start 01/10/19 at 21:00 Senna (Senokot) 1 tab HS PO Last administered on 01/13/19at 20:23; Admin Dose 1 TAB; Start 01/10/19 at 21:00 Lactulose (Enulose) 20 gm DAILY PRN PO CONSTIPATION; Start 01/10/19 at 20:00 Bisacodyl (Dulcolax Supp) 10 mg DAILY PRN [place] CONSTIPATION; Start 01/10/19 at 20:00 Lorazepam (Ativan) 1 mg Q1H PRN IV SEIZURE; Start 01/10/19 at 20:47 Acetaminophen (Tylenol Tab) 650 mg Q4H PRN PO MILD PAIN(1-3)OR ELEVATED TEMP; Start 01/10/19 at 20:47 Baclofen (Lioresal) 20 mg BID PO Last administered on 01/15/19 08:23; Admin Dose 20 MG; Start 01/10/19 at 20:47 Gabapentin (Neurontin) 300 mg QID PO Last administered on 01/15/19 12:23; Admin Dose 300 MG; Start 01/10/19 at 20:47 Solifenacin (Vesicare) 10 mg DAILY PO Last administered on 01/15/19 08:23; Admin Dose 10 MG; Start 01/10/19 at 20:47 Folic Acid (Folic Acid) 1 mg DAILY PO Last administered on 01/15/19 08:22; Admin Dose 1 MG; Start 01/10/19 at 20:47 Aspirin (Aspirin) 81 mg DAILY PO Last administered on 01/15/19 08:22; Admin Dose 81 MG; Start 01/10/19 at 20:47 Patient Own Medication 1 ea QHS PO Last administered on 01/14/19 20:37; Admin Dose 1 EA; Start 01/10/19 at 20:47 Atorvastatin Calcium (Lipitor) 80 mg HS PO Last administered on 01/14/19 20:38; Admin Dose 80 MG; Start 01/10/19 at 20:47 Multivitamins Therapeutic (Theragran) 1 tab DAILY PO Last administered on 01/15/19 08:23; Admin Dose 1 TAB; Start 01/10/19 at 20:47 Ascorbic Acid (Vitamin C) 500 mg BID PO Last administered on 01/15/19 08:22; Admin Dose 500 MG; Start 01/10/19 at 20:47 Levetiracetam (Keppra) 500 mg BID PO Last administered on 01/15/19 08:23; Admin Dose 500 MG; Start 01/10/19 at 20:47 Docusate Sodium (Colace) 100 mg BID PRN PO CONSTIPATION; Start 01/10/19 at 20:47 Desmopressin Acetate (Ddavp) 0.1 mg QHS PO Last administered on 01/14/19 20:38; Admin Dose 0.1 MG; Start 01/13/19 at 21:00 Multi-Ingredient Ointment (Eucerin Cream) 1 applic BID PRN TOP rash Last administered on 01/13/19 08:00; Admin Dose 1 APPLIC; Start 01/12/19 at 16:56 Assessment/Plan Additional Assessment/Plan Rehab- 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 Continue rehab program. OVerall activity tolerance improving Seizure disorder-seizure precautions Urinary incontinence with neurogenic bladder-bladder program SYED ROMO MD Jan 15, 2019 12:28
[2019-01-15 20:00] VITALS: BP 126/69; PULSE 88; RESP 18
[2019-01-15] MEDS: SENNA TAB PO SCH (21:00)
[2019-01-15] MEDS: DESMOPRESSIN 0.1 MG TAB PO SCH (21:01)
[2019-01-15] MEDS: ATORVASTATIN 80 MG TAB PO SCH (21:02)
[2019-01-15] MEDS: MYRBETRIQ 25 MG PO SCH (21:03)
--- NOTE | 2019-01-15 21:11 | PN ---
Date/Time of Note Date/Time of Note DATE: 01/15/19 TIME: 21:09 Assessment/Plan VTE Prophylaxis Risk score (from Nsg)>0 risk: 5 SCD applied (from Nsg): Yes Pharmacological prophylaxis: other Lines/Catheters IV Catheter Type (from Nrsg): Saline Lock Urinary Cath still in place: No Assessment/Plan Hospital Course Patient remains hemodynamically stable, afebrile, no seizure activity, pt participates in physical and occupational therapy. Assessment/Plan -Seizure vs TIA. 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 EEG is without epileptiform activity, though notable for left frontal breach artifact and left temporal slowing. Janee Siegel, ASA, Lipitor. Dr. Duran is following in neurology consultation. Continue PT,OT. 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 -R sided paralysis -Malnutrition Further recommendations based on clinical course. Plan of care discussed with Dr. Cassidy. Result Diagram: 01/13/19 0716 01/13/19 0716 Exam/Review of Systems Exam Vitals Vital Signs Date Temp Pulse Resp B/P (MAP) Pulse Ox O2 O2 Flow FiO2 Time Delivery Rate 01/15/19 98.4 88 18 126/69 99 Room Air 20:00 (88) Intake and Output 01/14/19 01/14/19 01/15/19 1515:00 23:00 07:00 IntakeIntake Total 240 ml 200 ml 200 ml BalanceBalance 240 ml 200 ml 200 ml Exam Constitutional: alert, oriented Neck: supple Respiratory: clear to auscultation Cardiovascular: nl pulses Gastrointestinal: soft, non-tender Extremities: normal pulses Neurological: other (Right-sided paralysis) Medications Medication Current Medications Docusate Sodium (Colace) 100 mg BID PO Last administered on 01/15/19at 08:23; Admin Dose 100 MG; Start 01/10/19 at 21:00 Senna (Senokot) 1 tab HS PO Last administered on 01/13/19at 20:23; Admin Dose 1 TAB; Start 01/10/19 at 21:00 Lactulose (Enulose) 20 gm DAILY PRN PO CONSTIPATION; Start 01/10/19 at 20:00 Bisacodyl (Dulcolax Supp) 10 mg DAILY PRN [place] CONSTIPATION; Start 01/10/19 at 20:00 Lorazepam (Ativan) 1 mg Q1H PRN IV SEIZURE; Start 01/10/19 at 20:47 Acetaminophen (Tylenol Tab) 650 mg Q4H PRN PO MILD PAIN(1-3)OR ELEVATED TEMP; Start 01/10/19 at 20:47 Baclofen (Lioresal) 20 mg BID PO Last administered on 01/15/19 08:23; Admin Dose 20 MG; Start 01/10/19 at 20:47 Gabapentin (Neurontin) 300 mg QID PO Last administered on 01/15/19 17:30; Admin Dose 300 MG; Start 01/10/19 at 20:47 Solifenacin (Vesicare) 10 mg DAILY PO Last administered on 01/15/19 08:23; Admin Dose 10 MG; Start 01/10/19 at 20:47 Folic Acid (Folic Acid) 1 mg DAILY PO Last administered on 01/15/19 08:22; Admin Dose 1 MG; Start 01/10/19 at 20:47 Aspirin (Aspirin) 81 mg DAILY PO Last administered on 01/15/19 08:22; Admin Dose 81 MG; Start 01/10/19 at 20:47 Patient Own Medication 1 ea QHS PO Last administered on 01/14/19 20:37; Admin Dose 1 EA; Start 01/10/19 at 20:47 Atorvastatin Calcium (Lipitor) 80 mg HS PO Last administered on 01/14/19 20:38; Admin Dose 80 MG; Start 01/10/19 at 20:47 Multivitamins Therapeutic (Theragran) 1 tab DAILY PO Last administered on 01/15/19 08:23; Admin Dose 1 TAB; Start 01/10/19 at 20:47 Ascorbic Acid (Vitamin C) 500 mg BID PO Last administered on 01/15/19 08:22; Admin Dose 500 MG; Start 01/10/19 at 20:47 Levetiracetam (Keppra) 500 mg BID PO Last administered on 01/15/19 08:23; Admin Dose 500 MG; Start 01/10/19 at 20:47 Docusate Sodium (Colace) 100 mg BID PRN PO CONSTIPATION; Start 01/10/19 at 20:47 Desmopressin Acetate (Ddavp) 0.1 mg QHS PO Last administered on 01/14/19at 20:38; Admin Dose 0.1 MG; Start 01/13/19 at 21:00 Multi-Ingredient Ointment (Eucerin Cream) 1 applic BID PRN TOP rash Last administered on 01/13/19at 08:00; Admin Dose 1 APPLIC; Start 01/12/19 at 16:56 ZINA IBARRA Jan 15, 2019 21:11
[2019-01-16 05:14] VITALS: BP 107/56; PULSE 86; RESP 17
[2019-01-16 08:00] VITALS: BP 115/82; PULSE 89; RESP 18
[2019-01-16] MEDS: MULTIVITAMINS THERAPEUTIC TAB PO SCH (08:11)
[2019-01-16] MEDS: BACLOFEN 10 MG TAB PO SCH ×2 (08:11→20:44)
[2019-01-16] MEDS: FOLIC ACID 1 MG TAB PO SCH (08:11)
[2019-01-16] MEDS: ASPIRIN 81 MG TAB PO SCH (08:11)
[2019-01-16] MEDS: GABAPENTIN 300 MG CAP PO SCH ×4 (08:11→20:44)
[2019-01-16] MEDS: DOCUSATE SODIUM 100 MG CAP PO SCH ×2 (08:11→20:44)
[2019-01-16] MEDS: ASCORBIC ACID 500 MG TAB PO SCH ×2 (08:11→20:44)
[2019-01-16] MEDS: SOLIFENACIN 5 MG TAB PO SCH (08:11)
[2019-01-16] MEDS: LEVETIRACETAM 500 MG TAB PO SCH ×2 (08:11→20:44)
--- NOTE | 2019-01-16 12:14 | PN ---
Date/Time of Note Date/Time of Note DATE: 01/16/19 TIME: 12:11 Subjective "My goal is to get in and out of my wheelchair better" Objective Vital Signs Date Temp Pulse Resp B/P (MAP) Pulse Ox O2 O2 Flow FiO2 Time Delivery Rate 01/16/19 97.6 89 18 115/82 98 Room Air 08:00 (93) Intake and Output 01/15/19 01/15/19 01/16/19 1515:00 23:00 07:00 IntakeIntake Total 300 ml 500 ml BalanceBalance 300 ml 500 ml Exam pulm-cta abd-soft mod Results/Medications Result Diagram: 01/13/19 0716 01/13/19 0716 Medications Current Medications Docusate Sodium (Colace) 100 mg BID PO Last administered on 01/16/19at 08:11; Admin Dose 100 MG; Start 01/10/19 at 21:00 Senna (Senokot) 1 tab HS PO Last administered on 01/13/19at 20:23; Admin Dose 1 TAB; Start 01/10/19 at 21:00 Lactulose (Enulose) 20 gm DAILY PRN PO CONSTIPATION; Start 01/10/19 at 20:00 Bisacodyl (Dulcolax Supp) 10 mg DAILY PRN [place] CONSTIPATION; Start 01/10/19 at 20:00 Lorazepam (Ativan) 1 mg Q1H PRN IV SEIZURE; Start 01/10/19 at 20:47 Acetaminophen (Tylenol Tab) 650 mg Q4H PRN PO MILD PAIN(1-3)OR ELEVATED TEMP; Start 01/10/19 at 20:47 Baclofen (Lioresal) 20 mg BID PO Last administered on 01/16/19at 08:11; Admin Dose 20 MG; Start 01/10/19 at 20:47 Gabapentin (Neurontin) 300 mg QID PO Last administered on 01/16/19 12:04; Admin Dose 300 MG; Start 01/10/19 at 20:47 Solifenacin (Vesicare) 10 mg DAILY PO Last administered on 01/16/19 08:11; Admin Dose 10 MG; Start 01/10/19 at 20:47 Folic Acid (Folic Acid) 1 mg DAILY PO Last administered on 01/16/19 08:11; Admin Dose 1 MG; Start 01/10/19 at 20:47 Aspirin (Aspirin) 81 mg DAILY PO Last administered on 01/16/19 08:11; Admin Dose 81 MG; Start 01/10/19 at 20:47 Patient Own Medication 1 ea QHS PO Last administered on 01/15/19 21:03; Admin Dose 1 EA; Start 01/10/19 at 20:47 Atorvastatin Calcium (Lipitor) 80 mg HS PO Last administered on 01/15/19 21:02; Admin Dose 80 MG; Start 01/10/19 at 20:47 Multivitamins Therapeutic (Theragran) 1 tab DAILY PO Last administered on 01/16/19 08:11; Admin Dose 1 TAB; Start 01/10/19 at 20:47 Ascorbic Acid (Vitamin C) 500 mg BID PO Last administered on 01/16/19 08:11; Admin Dose 500 MG; Start 01/10/19 at 20:47 Levetiracetam (Keppra) 500 mg BID PO Last administered on 01/16/19 08:11; Admin Dose 500 MG; Start 01/10/19 at 20:47 Docusate Sodium (Colace) 100 mg BID PRN PO CONSTIPATION; Start 01/10/19 at 20:47 Desmopressin Acetate (Ddavp) 0.1 mg QHS PO Last administered on 01/15/19 21:01; Admin Dose 0.1 MG; Start 01/13/19 at 21:00 Multi-Ingredient Ointment (Eucerin Cream) 1 applic BID PRN TOP rash Last administered on 01/13/19 08:00; Admin Dose 1 APPLIC; Start 01/12/19 at 16:56 Assessment/Plan Additional Assessment/Plan Rehab- 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 Continue rehab treatment plan. Lab Ray added for posture correction while in wheelchair Seizure disorder-seizure precautions Urinary incontinence with neurogenic bladder-bladder program SYED ROMO MD Jan 16, 2019 12:14
[2019-01-16 14:00] VITALS: BP 133/70; PULSE 81; RESP 19
--- NOTE | 2019-01-16 18:27 | PN ---
Date/Time of Note Date/Time of Note DATE: 01/16/19 TIME: 18:25 Assessment/Plan VTE Prophylaxis Risk score (from Nsg)>0 risk: 5 SCD applied (from Nsg): Yes Pharmacological prophylaxis: other Lines/Catheters IV Catheter Type (from Nrsg): Saline Lock Urinary Cath still in place: No Assessment/Plan Hospital Course Urine cultures positive for E. coli UTI, will start Levaquin, patient remains hemodynamically stable, afebrile, no seizure activity, pt participates in physical and occupational therapy. Assessment/Plan -Seizure vs TIA. 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 EEG is without epileptiform activity, though notable for left frontal breach artifact and left temporal slowing. Continue Keppra, ASA, Lipitor. Dr. Duran is following in neurology consultation. Continue PT,OT. 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 -R sided paralysis -Malnutrition Further recommendations based on clinical course. Plan of care discussed with Dr. Cassidy. Result Diagram: 01/13/19 0716 01/13/19 0716 Exam/Review of Systems Exam Vitals Vital Signs Date Temp Pulse Resp B/P (MAP) Pulse Ox O2 O2 Flow FiO2 Time Delivery Rate 01/16/19 98.0 81 19 133/70 100 Room Air 14:00 (91) Intake and Output 01/15/19 01/15/19 01/16/19 1515:00 23:00 07:00 IntakeIntake Total 300 ml 500 ml BalanceBalance 300 ml 500 ml Exam Constitutional: alert, oriented Neck: supple Respiratory: clear to auscultation Cardiovascular: nl pulses Gastrointestinal: soft, non-tender Extremities: normal pulses Neurological: other (Right-sided paralysis) Medications Medication Current Medications Docusate Sodium (Colace) 100 mg BID PO Last administered on 01/16/19at 08:11; Admin Dose 100 MG; Start 01/10/19 at 21:00 Senna (Senokot) 1 tab HS PO Last administered on 01/13/19at 20:23; Admin Dose 1 TAB; Start 01/10/19 at 21:00 Lactulose (Enulose) 20 gm DAILY PRN PO CONSTIPATION; Start 01/10/19 at 20:00 Bisacodyl (Dulcolax Supp) 10 mg DAILY PRN [place] CONSTIPATION; Start 01/10/19 at 20:00 Lorazepam (Ativan) 1 mg Q1H PRN IV SEIZURE; Start 01/10/19 at 20:47 Acetaminophen (Tylenol Tab) 650 mg Q4H PRN PO MILD PAIN(1-3)OR ELEVATED TEMP; Start 01/10/19 at 20:47 Baclofen (Lioresal) 20 mg BID PO Last administered on 01/16/19 08:11; Admin Dose 20 MG; Start 01/10/19 at 20:47 Gabapentin (Neurontin) 300 mg QID PO Last administered on 01/16/19 17:24; Admin Dose 300 MG; Start 01/10/19 at 20:47 Solifenacin (Vesicare) 10 mg DAILY PO Last administered on 01/16/19 08:11; Admin Dose 10 MG; Start 01/10/19 at 20:47 Folic Acid (Folic Acid) 1 mg DAILY PO Last administered on 01/16/19 08:11; Admin Dose 1 MG; Start 01/10/19 at 20:47 Aspirin (Aspirin) 81 mg DAILY PO Last administered on 01/16/19 08:11; Admin Dose 81 MG; Start 01/10/19 at 20:47 Patient Own Medication 1 ea QHS PO Last administered on 01/15/19 21:03; Admin Dose 1 EA; Start 01/10/19 at 20:47 Atorvastatin Calcium (Lipitor) 80 mg HS PO Last administered on 01/15/19 21:02; Admin Dose 80 MG; Start 01/10/19 at 20:47 Multivitamins Therapeutic (Theragran) 1 tab DAILY PO Last administered on 01/16/19 08:11; Admin Dose 1 TAB; Start 01/10/19 at 20:47 Ascorbic Acid (Vitamin C) 500 mg BID PO Last administered on 01/16/19 08:11; Admin Dose 500 MG; Start 01/10/19 at 20:47 Levetiracetam (Keppra) 500 mg BID PO Last administered on 01/16/19 08:11; Admin Dose 500 MG; Start 01/10/19 at 20:47 Docusate Sodium (Colace) 100 mg BID PRN PO CONSTIPATION; Start 01/10/19 at 20:47 Desmopressin Acetate (Ddavp) 0.1 mg QHS PO Last administered on 01/15/19at 21:01; Admin Dose 0.1 MG; Start 01/13/19 at 21:00 Multi-Ingredient Ointment (Eucerin Cream) 1 applic BID PRN TOP rash Last administered on 01/13/19at 08:00; Admin Dose 1 APPLIC; Start 01/12/19 at 16:56 ZINA IBARRA Jan 16, 2019 18:27
[2019-01-16 20:00] VITALS: BP 135/71; PULSE 81; RESP 18
--- NOTE | 2019-01-16 20:29 | CONS ---
DATE OF ADMISSION: 01/10/2019 DATE OF CONSULTATION: 01/16/2019 TYPE OF CONSULTATION: Psychological. REFERRING PHYSICIAN: Syed Doty MD CONSULTING PSYCHOLOGIST: Sandra Nunez, PhD REASON FOR CONSULTATION: This consultation was requested by Dr. Mani Doty in order to evaluate t he cognitive and emotional functioning of this patient related to her present medical condition. HISTORY OF PRESENT ILLNESS: The patient is a 53-year-old female. The patient does have a history of brain tumors and is status post resection and radiation treatment in 1995. The patient was admitted to [facility] with expressive aphasia, increased weakness on the left side and sei zure activity. MRI of the brain was performed and did demonstrate multiple enhancing lesions concern ing for recurrent neoplasm, as well as possible focus of ischemia in the right hemisphere. The deloris reeves was eventually cleared medically and sent to the acute rehabilitation unit for acute multidiscipli nary rehabilitation. The patient is extremely motivated to get better and does want to return to her previous level of functioning. The patient had been high functioning. The patient was confused and having expressive aphasia on admission, but it appears that the patient is starting to improve. FAMILY AND SOCIAL HISTORY: The patient lives in her own home. The patient basically lives with a ro ommate who is her caregiver. The patient does want to return there after discharge. MEDICATIONS: 1. The patient is taking Ativan 1 mg q.1 hour p.r.n. for anxiety. 2. She is also on Neurontin 300 mg q.i.d., but this is likely for her seizures rather than for mood stabilization. SUBSTANCE USE: The patient reports that she does not smoke. The patient reports that she does not u se alcohol or other drugs. MENTAL STATUS EXAMINATION: APPEARANCE: The patient was seen in her wheelchair. She is of average height and weight. The deloris reeves is right-handed and wears glasses. BEHAVIOR: The patient was cooperative during the consultation. The patient did attempt to answer al l questions presented to her by the interviewer. MOOD AND AFFECT: The patient's mood appears to be just slightly depressed. Affect appeared just sli ghtly anxious. PERCEPTION: The patient reports that she actually has for the most part of good attitude and is tryi ng hard to make the best of her situation. PERCEPTION: The patient reports no hallucinations or delusions. The patient was alert to person, pl nathanael, situation and time. MEMORY COGNITION: Memory and cognition appear to be intact. The patient was admitted with expressiv e aphasia, but at this point, the patient was able to answer questions presented to her. At times, t he patient did have to stop and focus and think through, but she was able to answer the questions. T he patient was able to state the name of the hospital. The patient was able to state the month and y ear. The patient was able to state the president of [facility], the governor of the [facility] and the mayor of the [facility]. The patient was able to spell "world" backwards. T he patient was able to do 5 serial-7 subtractions from 100. The patient did have to stop for a while on the serial 7s, but was able to complete them without error. Overall given the patient's premorbi d condition prior to being admitted to the rehabilitation unit, her cognitive functioning is quite go od. INTELLIGENCE: Intelligence would appear to fall in the average to above-average range. INSIGHT: Good. JUDGMENT: Good. THOUGHT CONTENT: The patient is concerned about her present medical condition. The patient did want to return to her previous level of functioning. The patient is willing to talk about her issues. T he patient has had counseling in the past and did see somebody approximately 6 weeks ago. DISCUSSION: The patient can likely benefit from some cognitive/behavioral psychotherapy while she is on the unit. This would focus on her underlying level of anxiety about her medical problems. The p atient was encouraged to seek out her counselor again after she leaves the hospital. The patient did say that she was prepared to do this. 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 Thank you very much, Dr. Mani Doty, for referring this individual. Please do not hesitate to ruthie holman if you have additional questions. Dictated By: SANDRA NUNEZ PHD RK/BARBIE Conf#: [id number] DID#: [id number] CC: JAMMIE DOBSON MD; SYED DOTY MD;*EndCC*
[2019-01-16] MEDS: ATORVASTATIN 80 MG TAB PO SCH (20:44)
[2019-01-16] MEDS: DESMOPRESSIN 0.1 MG TAB PO SCH (20:44)
[2019-01-16] MEDS: SENNA TAB PO SCH (20:45)
[2019-01-16] MEDS: MYRBETRIQ 25 MG PO SCH (20:48)
[2019-01-17 02:00] VITALS: BP 124/69; PULSE 77; RESP 18
[2019-01-17 07:00] VITALS: BP 103/62; PULSE 89; RESP 18
[2019-01-17] MEDS: LEVOFLOXACIN 250 MG TAB PO SCH (07:07)
[2019-01-17] MEDS: SOLIFENACIN 5 MG TAB PO SCH (08:39)
[2019-01-17] MEDS: MULTIVITAMINS THERAPEUTIC TAB PO SCH (08:39)
[2019-01-17] MEDS: LEVETIRACETAM 500 MG TAB PO SCH ×2 (08:39→22:24)
[2019-01-17] MEDS: FOLIC ACID 1 MG TAB PO SCH (08:39)
[2019-01-17] MEDS: ASCORBIC ACID 500 MG TAB PO SCH ×2 (08:39→22:24)
[2019-01-17] MEDS: BACLOFEN 10 MG TAB PO SCH ×2 (08:39→22:24)
[2019-01-17] MEDS: DOCUSATE SODIUM 100 MG CAP PO SCH ×2 (08:39→22:24)
[2019-01-17] MEDS: GABAPENTIN 300 MG CAP PO SCH ×4 (08:39→22:24)
[2019-01-17] MEDS: ASPIRIN 81 MG TAB PO SCH (08:39)
--- NOTE | 2019-01-17 10:21 | PN ---
Date/Time of Note Date/Time of Note DATE: 01/17/19 TIME: 10:21 Assessment/Plan VTE Prophylaxis Risk score (from Ns)>0 risk: 5 SCD applied (from Nsg): Yes Pharmacological prophylaxis: LMWH Lines/Catheters IV Catheter Type (from Nrsg): Saline Lock Urinary Cath still in place: No Assessment/Plan Hospital Course No acute events overnight, patient continues to participate in physical and occupational therapy, no seizure activity reported per RN, patient is awake alert and appropriate. Assessment/Plan -UTI, continue Levaquin. -Seizure vs TIA. 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 EEG is without epileptiform activity, though notable for left frontal breach artifact and left temporal slowing. Continue Keppra, ASA, Lipitor. Dr. Duran is following in neurology consultation. Continue PT,OT. 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 -R sided paralysis -Malnutrition Further recommendations based on clinical course. Plan of care discussed with Dr. Cassidy. Result Diagram: 01/13/1916 01/13/19 0716 Exam/Review of Systems Exam Vitals Vital Signs Date Temp Pulse Resp B/P (MAP) Pulse Ox O2 O2 Flow FiO2 Time Delivery Rate 01/17/19 97.7 89 18 103/62 95 Room Air 07:00 (76) Intake and Output 01/16/19 01/16/19 01/17/19 1515:00 23:00 07:00 IntakeIntake Total 650 ml 360 ml BalanceBalance 650 ml 360 ml Exam Constitutional: alert, oriented Neck: supple Respiratory: clear to auscultation Cardiovascular: nl pulses Gastrointestinal: soft, non-tender Extremities: normal pulses Neurological: other (Right-sided paralysis) Medications Medication Current Medications Docusate Sodium (Colace) 100 mg BID PO Last administered on 01/16/19at 20:44; Admin Dose 100 MG; Start 01/10/19 at 21:00 Senna (Senokot) 1 tab HS PO Last administered on 01/13/19at 20:23; Admin Dose 1 TAB; Start 01/10/19 at 21:00 Lactulose (Enulose) 20 gm DAILY PRN PO CONSTIPATION; Start 01/10/19 at 20:00 Bisacodyl (Dulcolax Supp) 10 mg DAILY PRN [place] CONSTIPATION; Start 01/10/19 at 20:00 Lorazepam (Ativan) 1 mg Q1H PRN IV SEIZURE; Start 01/10/19 at 20:47 Acetaminophen (Tylenol Tab) 650 mg Q4H PRN PO MILD PAIN(1-3)OR ELEVATED TEMP; Start 01/10/19 at 20:47 Baclofen (Lioresal) 20 mg BID PO Last administered on 01/17/19 08:39; Admin Dose 20 MG; Start 01/10/19 at 20:47 Gabapentin (Neurontin) 300 mg QID PO Last administered on 01/17/19 08:39; Admin Dose 300 MG; Start 01/10/19 at 20:47 Solifenacin (Vesicare) 10 mg DAILY PO Last administered on 01/17/19 08:39; Admin Dose 10 MG; Start 01/10/19 at 20:47 Folic Acid (Folic Acid) 1 mg DAILY PO Last administered on 01/17/19 08:39; Admin Dose 1 MG; Start 01/10/19 at 20:47 Aspirin (Aspirin) 81 mg DAILY PO Last administered on 01/17/19 08:39; Admin Dose 81 MG; Start 01/10/19 at 20:47 Patient Own Medication 1 ea QHS PO Last administered on 01/16/19 20:48; Admin Dose 1 EA; Start 01/10/19 at 20:47 Atorvastatin Calcium (Lipitor) 80 mg HS PO Last administered on 01/16/19 20:44; Admin Dose 80 MG; Start 01/10/19 at 20:47 Multivitamins Therapeutic (Theragran) 1 tab DAILY PO Last administered on 01/17/19 08:39; Admin Dose 1 TAB; Start 01/10/19 at 20:47 Ascorbic Acid (Vitamin C) 500 mg BID PO Last administered on 01/17/19 08:39; Admin Dose 500 MG; Start 01/10/19 at 20:47 Levetiracetam (Keppra) 500 mg BID PO Last administered on 01/17/19 08:39; Admi n Dose 500 MG; Start 01/10/19 at 20:47 Docusate Sodium (Colace) 100 mg BID PRN PO CONSTIPATION; Start 01/10/19 at 20:47 Desmopressin Acetate (Ddavp) 0.1 mg QHS PO Last administered on 01/16/19at 20:44; Admin Dose 0.1 MG; Start 01/13/19 at 21:00 Multi-Ingredient Ointment (Eucerin Cream) 1 applic BID PRN TOP rash Last administered on 01/13/19at 08:00; Admin Dose 1 APPLIC; Start 01/12/19 at 16:56 Levofloxacin (Levaquin) 250 mg DAILY@06 PO Last administered on 01/17/19at 07:07; Admin Dose 250 MG; Start 01/17/19 at 06:00 ZINA IBARRA Jan 17, 2019 10:21
--- NOTE | 2019-01-17 12:35 | PN ---
Date/Time of Note Date/Time of Note DATE: 01/17/19 TIME: 11:41 Objective Vital Signs Date Temp Pulse Resp B/P (MAP) Pulse Ox O2 O2 Flow FiO2 Time Delivery Rate 01/17/19 97.7 89 18 103/62 95 Room Air 07:00 (76) Intake and Output 01/16/19 01/16/19 01/17/19 1515:00 23:00 07:00 IntakeIntake Total 650 ml 360 ml BalanceBalance 650 ml 360 ml Exam INTERDISCIPLINARY TEAM CONFERENCE Attended by PT, OT, ST, Social Work, Rehabilitation Nursing, Cloth Mender and Executive DirectorMechanism Inspector Exam: Improved sitting posture BOWEL- Cont BLADDER-incont SKIN- improving OT- DRESSING-MIN/MAX BATHING-min/max TOILETING-mod PT- BED MOBILITY-sba TRANSFERS-mod WHEELCHAIR- sba SPEECH- COGNITION-s Dysphagia- tolerating regular diet A/P- Interdisciplinary team conference held today. Please see interdisciplinary sheet. Working toward d.c. on 01/24 with post discharge follow up of physical therapy, occupational therapy. Results/Medications Result Diagram: 01/13/19 0716 01/13/19 0716 Medications Current Medications Docusate Sodium (Colace) 100 mg BID PO Last administered on 01/16/19at 20:44; Admin Dose 100 MG; Start 01/10/19 at 21:00 Senna (Senokot) 1 tab HS PO Last administered on 01/13/19at 20:23; Admin Dose 1 TAB; Start 01/10/19 at 21:00 Lactulose (Enulose) 20 gm DAILY PRN PO CONSTIPATION; Start 01/10/19 at 20:00 Bisacodyl (Dulcolax Supp) 10 mg DAILY PRN [place] CONSTIPATION; Start 01/10/19 at 20:00 Lorazepam (Ativan) 1 mg Q1H PRN IV SEIZURE; Start 01/10/19 at 20:47 Acetaminophen (Tylenol Tab) 650 mg Q4H PRN PO MILD PAIN(1-3)OR ELEVATED TEMP; Start 01/10/19 at 20:47 Baclofen (Lioresal) 20 mg BID PO Last administered on 01/17/19at 08:39; Admin Dose 20 MG; Start 01/10/19 at 20:47 Gabapentin (Neurontin) 300 mg QID PO Last administered on 01/17/19at 08:39; Admin Dose 300 MG; Start 01/10/19 at 20:47 Solifenacin (Vesicare) 10 mg DAILY PO Last administered on 01/17/19 08:39; Admin Dose 10 MG; Start 01/10/19 at 20:47 Folic Acid (Folic Acid) 1 mg DAILY PO Last administered on 01/17/19 08:39; Admin Dose 1 MG; Start 01/10/19 at 20:47 Aspirin (Aspirin) 81 mg DAILY PO Last administered on 01/17/19 08:39; Admin Dose 81 MG; Start 01/10/19 at 20:47 Patient Own Medication 1 ea QHS PO Last administered on 01/16/19 20:48; Admin Dose 1 EA; Start 01/10/19 at 20:47 Atorvastatin Calcium (Lipitor) 80 mg HS PO Last administered on 01/16/19 20:44; Admin Dose 80 MG; Start 01/10/19 at 20:47 Multivitamins Therapeutic (Theragran) 1 tab DAILY PO Last administered on 01/17/19 08:39; Admin Dose 1 TAB; Start 01/10/19 at 20:47 Ascorbic Acid (Vitamin C) 500 mg BID PO Last administered on 01/17/19 08:39; Admin Dose 500 MG; Start 01/10/19 at 20:47 Levetiracetam (Keppra) 500 mg BID PO Last administered on 01/17/19 08:39; Admin Dose 500 MG; Start 01/10/19 at 20:47 Docusate Sodium (Colace) 100 mg BID PRN PO CONSTIPATION; Start 01/10/19 at 20:47 Desmopressin Acetate (Ddavp) 0.1 mg QHS PO Last administered on 01/16/19 20:44; Admin Dose 0.1 MG; Start 01/13/19 at 21:00 Multi-Ingredient Ointment (Eucerin Cream) 1 applic BID PRN TOP rash Last administered on 01/13/19 08:00; Admin Dose 1 APPLIC; Start 01/12/19 at 16:56 Levofloxacin (Levaquin) 250 mg DAILY@06 PO Last administered on 01/17/19 07:07; Admin Dose 250 MG; Start 01/17/19 at 06:00 SEYD ROMO MD Jan 17, 2019 12:35
[2019-01-17 13:43] VITALS: BP 104/61; PULSE 86; RESP 18
[2019-01-17 20:00] VITALS: BP 112/62; PULSE 80; RESP 18
[2019-01-17] MEDS: ATORVASTATIN 80 MG TAB PO SCH (22:23)
[2019-01-17] MEDS: DESMOPRESSIN 0.1 MG TAB PO SCH (22:23)
[2019-01-17] MEDS: SENNA TAB PO SCH (22:24)
[2019-01-17] MEDS: MYRBETRIQ 25 MG PO SCH (22:26)
--- NOTE | 2019-01-17 23:57 | PN ---
Date/Time of Note Date/Time of Note DATE: 01/17/19 TIME: 23:54 Assessment/Plan VTE Prophylaxis Risk score (from Nsg)>0 risk: 5 SCD applied (from Nsg): Yes Pharmacological prophylaxis: other Lines/Catheters IV Catheter Type (from Nrsg): Saline Lock Urinary Cath still in place: No Assessment/Plan Hospital Course Patient remains hemodynamically stable afebrile, status post evaluation by psychiatrist for periods of anxiety with recommendation for cognitive behavioral therapy. Patient participates in physical and occupational therapy, continue current care. Assessment/Plan -UTI, continue Levaquin. -Seizure vs TIA. 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 EEG is without epileptiform activity, though notable for left frontal breach artifact and left temporal slowing. Continue Keppra, ASA, Lipitor. Dr. Duran is following in neurology consultation. Continue PT,OT. 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 -R sided paralysis Further recommendations based on clinical course. Plan of care discussed with Dr. Cassidy. Result Diagram: 01/13/19 0716 01/13/19 0716 Exam/Review of Systems Exam Vitals Vital Signs Date Temp Pulse Resp B/P (MAP) Pulse Ox O2 O2 Flow FiO2 Time Delivery Rate 01/17/19 98.9 80 18 112/62 98 Room Air 20:00 (79) Intake and Output 01/16/19 01/16/19 01/17/19 1515:00 23:00 07:00 IntakeIntake Total 650 ml 360 ml BalanceBalance 650 ml 360 ml Exam Constitutional: alert, oriented Neck: supple Respiratory: clear to auscultation Cardiovascular: nl pulses Gastrointestinal: soft, non-tender Extremities: normal pulses Neurological: other (Right-sided paralysis) Medications Medication Current Medications Docusate Sodium (Colace) 100 mg BID PO Last administered on 01/17/19at 22:24; Admin Dose 100 MG; Start 01/10/19 at 21:00 Senna (Senokot) 1 tab HS PO Last administered on 01/17/19at 22:24; Admin Dose 1 TAB; Start 01/10/19 at 21:00 Lactulose (Enulose) 20 gm DAILY PRN PO CONSTIPATION; Start 01/10/19 at 20:00 Bisacodyl (Dulcolax Supp) 10 mg DAILY PRN [place] CONSTIPATION; Start 01/10/19 at 20:00 Lorazepam (Ativan) 1 mg Q1H PRN IV SEIZURE; Start 01/10/19 at 20:47 Acetaminophen (Tylenol Tab) 650 mg Q4H PRN PO MILD PAIN(1-3)OR ELEVATED TEMP; Start 01/10/19 at 20:47 Baclofen (Lioresal) 20 mg BID PO Last administered on 01/17/19 22:24; Admin Dose 20 MG; Start 01/10/19 at 20:47 Gabapentin (Neurontin) 300 mg QID PO Last administered on 01/17/19 22:24; A dmin Dose 300 MG; Start 01/10/19 at 20:47 Solifenacin (Vesicare) 10 mg DAILY PO Last administered on 01/17/19 08:39; Admin Dose 10 MG; Start 01/10/19 at 20:47 Folic Acid (Folic Acid) 1 mg DAILY PO Last administered on 01/17/19 08:39; Admin Dose 1 MG; Start 01/10/19 at 20:47 Aspirin (Aspirin) 81 mg DAILY PO Last administered on 01/17/19 08:39; Admin Dose 81 MG; Start 01/10/19 at 20:47 Patient Own Medication 1 ea QHS PO Last administered on 01/17/19 22:26; Admin Dose 1 EA; Start 01/10/19 at 20:47 Atorvastatin Calcium (Lipitor) 80 mg HS PO Last administered on 01/17/19 22:23; Admin Dose 80 MG; Start 01/10/19 at 20:47 Multivitamins Therapeutic (Theragran) 1 tab DAILY PO Last administered on 01/17/19 08:39; Admin Dose 1 TAB; Start 01/10/19 at 20:47 Ascorbic Acid (Vitamin C) 500 mg BID PO Last administered on 01/17/19 22:24; Admin Dose 500 MG; Start 01/10/19 at 20:47 Levetiracetam (Keppra) 500 mg BID PO Last administered on 01/17/19 22:24; Admin Dose 500 MG; Start 01/10/19 at 20:47 Docusate Sodium (Colace) 100 mg BID PRN PO CONSTIPATION; Start 01/10/19 at 20:47 Desmopressin Acetate (Ddavp) 0.1 mg QHS PO Last administered on 01/17/19at 22:23; Admin Dose 0.1 MG; Start 01/13/19 at 21:00 Multi-Ingredient Ointment (Eucerin Cream) 1 applic BID PRN TOP rash Last administered on 01/13/19at 08:00; Admin Dose 1 APPLIC; Start 01/12/19 at 16:56 Levofloxacin (Levaquin) 250 mg DAILY@06 PO Last administered on 01/17/19at 07:07; Admin Dose 250 MG; Start 01/17/19 at 06:00 ZINA IBARRA Jan 17, 2019 23:57
--- NOTE | 2019-01-18 05:25 | PN ---
Date/Time of Note Date/Time of Note DATE: 01/18/19 TIME: 05:25 Assessment/Plan VTE Prophylaxis Risk score (from Nsg)>0 risk: 5 SCD applied (from Nsg): Yes Lines/Catheters IV Catheter Type (from Nrsg): Saline Lock Urinary Cath still in place: No Assessment/Plan Results 24hrs -UTI, continue Levaquin. -Seizure vs TIA. 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 EEG is without epileptiform activity, though notable for left frontal breach artifact and left temporal slowing. Continue Keppra, ASA, Lipitor. Dr. Duran is following in neurology consultation. Continue PT,OT. 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 -R sided paralysis Further recommendations based on clinical course. Plan of care discussed with Dr. Cassidy. Exam/Review of Systems Exam Vitals Vital Signs Date Temp Pulse Resp B/P (MAP) Pulse Ox O2 O2 Flow FiO2 Time Delivery Rate 01/17/19 98.9 80 18 112/62 98 Room Air 20:00 (79) Intake and Output 01/17/19 01/17/19 01/18/19 1515:00 23:00 07:00 IntakeIntake Total 240 ml 200 ml BalanceBalance 240 ml 200 ml Medications Medication Current Medications Docusate Sodium (Colace) 100 mg BID PO Last administered on 01/17/19at 22:24; Admin Dose 100 MG; Start 01/10/19 at 21:00 Senna (Senokot) 1 tab HS PO Last administered on 01/17/19at 22:24; Admin Dose 1 TAB; Start 01/10/19 at 21:00 Lactulose (Enulose) 20 gm DAILY PRN PO CONSTIPATION; Start 01/10/19 at 20:00 Bisacodyl (Dulcolax Supp) 10 mg DAILY PRN [place] CONSTIPATION; Start 01/10/19 at 20:00 Lorazepam (Ativan) 1 mg Q1H PRN IV SEIZURE; Start 01/10/19 at 20:47 Acetaminophen (Tylenol Tab) 650 mg Q4H PRN PO MILD PAIN(1-3)OR ELEVATED TEMP; Start 01/10/19 at 20:47 Baclofen (Lioresal) 20 mg BID PO Last administered on 01/17/19 22:24; Admin Dose 20 MG; Start 01/10/19 at 20:47 Gabapentin (Neurontin) 300 mg QID PO Last administered on 01/17/19 22:24; Admin Dose 300 MG; Start 01/10/19 at 20:47 Solifenacin (Vesicare) 10 mg DAILY PO Last administered on 01/17/19 08:39; Admin Dose 10 MG; Start 01/10/19 at 20:47 Folic Acid (Folic Acid) 1 mg DAILY PO Last administered on 01/17/19 08:39; Admin Dose 1 MG; Start 01/10/19 at 20:47 Aspirin (Aspirin) 81 mg DAILY PO Last administered on 01/17/19 08:39; Admin Dose 81 MG; Start 01/10/19 at 20:47 Patient Own Medication 1 ea QHS PO Last administered on 01/17/19 22:26; Admin Dose 1 EA; Start 01/10/19 at 20:47 Atorvastatin Calcium (Lipitor) 80 mg HS PO Last administered on 01/17/19 22:23; Admin Dose 80 MG; Start 01/10/19 at 20:47 Multivitamins Therapeutic (Theragran) 1 tab DAILY PO Last administered on 01/17/19 08:39; Admin Dose 1 TAB; Start 01/10/19 at 20:47 Ascorbic Acid (Vitamin C) 500 mg BID PO Last administered on 01/17/19 22:24; Admin Dose 500 MG; Start 01/10/19 at 20:47 Levetiracetam (Keppra) 500 mg BID PO Last administered on 01/17/19 22:24; Admin Dose 500 MG; Start 01/10/19 at 20:47 Docusate Sodium (Colace) 100 mg BID PRN PO CONSTIPATION; Start 01/10/19 at 20:47 Desmopressin Acetate (Ddavp) 0.1 mg QHS PO Last administered on 01/17/19 22:23; Admin Dose 0.1 MG; Start 01/13/19 at 21:00 Multi-Ingredient Ointment (Eucerin Cream) 1 applic BID PRN TOP rash Last administered on 01/13/19 08:00; Admin Dose 1 APPLIC; Start 01/12/19 at 16:56 Levofloxacin (Levaquin) 250 mg DAILY@06 PO Last administered on 01/17/19at 07:07; Admin Dose 250 MG; Start 01/17/19 at 06:00 GRECIA KRISHNAMURTHY Jan 18, 2019 05:25
[2019-01-18] MEDS: LEVOFLOXACIN 250 MG TAB PO SCH (06:32)
[2019-01-18 07:00] VITALS: BP 99/56; PULSE 77; RESP 18
[2019-01-18] MEDS: BACLOFEN 10 MG TAB PO SCH ×2 (08:20→21:26)
[2019-01-18] MEDS: LEVETIRACETAM 500 MG TAB PO SCH ×2 (08:20→21:26)
[2019-01-18] MEDS: ASPIRIN 81 MG TAB PO SCH (08:20)
[2019-01-18] MEDS: ASCORBIC ACID 500 MG TAB PO SCH ×2 (08:21→21:26)
[2019-01-18] MEDS: DOCUSATE SODIUM 100 MG CAP PO SCH ×2 (08:21→21:00)
[2019-01-18] MEDS: FOLIC ACID 1 MG TAB PO SCH (08:21)
[2019-01-18] MEDS: GABAPENTIN 300 MG CAP PO SCH ×4 (08:21→21:26)
[2019-01-18] MEDS: MULTIVITAMINS THERAPEUTIC TAB PO SCH (08:21)
[2019-01-18] MEDS: SOLIFENACIN 5 MG TAB PO SCH (09:13)
[2019-01-18 14:00] VITALS: BP 100/60; PULSE 74; RESP 18
--- NOTE | 2019-01-18 14:14 | PN ---
Date/Time of Note Date/Time of Note DATE: 01/18/19 TIME: 14:13 Subjective Up for activities Objective Vital Signs Date Temp Pulse Resp B/P (MAP) Pulse Ox O2 O2 Flow FiO2 Time Delivery Rate 01/18/19 97.6 77 18 99/56 (70) 99 Room Air 07:00 Intake and Output 01/17/19 01/17/19 01/18/19 1515:00 23:00 07:00 IntakeIntake Total 240 ml 200 ml 20 ml BalanceBalance 240 ml 200 ml 20 ml Exam sb abed mobility min/cga transfers Results/Medications Medications Current Medications Docusate Sodium (Colace) 100 mg BID PO Last administered on 01/18/19 08:21; Admin Dose 100 MG; Start 01/10/19 at 21:00 Senna (Senokot) 1 tab HS PO Last administered on 01/17/19at 22:24; Admin Dose 1 TAB; Start 01/10/19 at 21:00 Lactulose (Enulose) 20 gm DAILY PRN PO CONSTIPATION; Start 01/10/19 at 20:00 Bisacodyl (Dulcolax Supp) 10 mg DAILY PRN [place] CONSTIPATION; Start 01/10/19 at 20:00 Lorazepam (Ativan) 1 mg Q1H PRN IV SEIZURE; Start 01/10/19 at 20:47 Acetaminophen (Tylenol Tab) 650 mg Q4H PRN PO MILD PAIN(1-3)OR ELEVATED TEMP; Start 01/10/19 at 20:47 Baclofen (Lioresal) 20 mg BID PO Last administered on 01/18/19at 08:20; Admin Dose 20 MG; Start 01/10/19 at 20:47 Gabapentin (Neurontin) 300 mg QID PO Last administered on 01/18/19at 13:39; Admin Dose 300 MG; Start 01/10/19 at 20:47 Solifenacin (Vesicare) 10 mg DAILY PO Last administered on 01/18/19 09:13; Admin Dose 10 MG; Start 01/10/19 at 20:47 Folic Acid (Folic Acid) 1 mg DAILY PO Last administered on 01/18/19 08:21; Admin Dose 1 MG; Start 01/10/19 at 20:47 Aspirin (Aspirin) 81 mg DAILY PO Last administered on 01/18/19 08:20; Admin Dose 81 MG; Start 01/10/19 at 20:47 Patient Own Medication 1 ea QHS PO Last administered on 01/17/19 22:26; Admin Dose 1 EA; Start 01/10/19 at 20:47 Atorvastatin Calcium (Lipitor) 80 mg HS PO Last administered on 01/17/19 22:23; Admin Dose 80 MG; Start 01/10/19 at 20:47 Multivitamins Therapeutic (Theragran) 1 tab DAILY PO Last administered on 01/18/19 08:21; Admin Dose 1 TAB; Start 01/10/19 at 20:47 Ascorbic Acid (Vitamin C) 500 mg BID PO Last administered on 01/18/19 08:21; Admin Dose 500 MG; Start 01/10/19 at 20:47 Levetiracetam (Keppra) 500 mg BID PO Last administered on 01/18/19 08:20; Admin Dose 500 MG; Start 01/10/19 at 20:47 Docusate Sodium (Colace) 100 mg BID PRN PO CONSTIPATION; Start 01/10/19 at 20:47 Desmopressin Acetate (Ddavp) 0.1 mg QHS PO Last administered on 01/17/19 22:23; Admin Dose 0.1 MG; Start 01/13/19 at 21:00 Multi-Ingredient Ointment (Eucerin Cream) 1 applic BID PRN TOP rash Last administered on 01/13/19 08:00; Admin Dose 1 APPLIC; Start 01/12/19 at 16:56 Levofloxacin (Levaquin) 250 mg DAILY@06 PO Last administered on 01/18/19 06:32; Admin Dose 250 MG; Start 01/17/19 at 06:00 Assessment/Plan Additional Assessment/Plan Rehab- 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 Excellent progress, contine plan Seizure disorder-seizure precautions Urinary incontinence with neurogenic bladder-bladder program SYED ROMO MD Jan 18, 2019 14:14
[2019-01-18 20:00] VITALS: BP 140/64; PULSE 87; RESP 18
[2019-01-18] MEDS: SENNA TAB PO SCH (21:00)
[2019-01-18] MEDS: MYRBETRIQ 25 MG PO SCH (21:26)
[2019-01-18] MEDS: ATORVASTATIN 80 MG TAB PO SCH (21:26)
[2019-01-18] MEDS: DESMOPRESSIN 0.1 MG TAB PO SCH (21:26)
[2019-01-19 02:00] VITALS: BP 134/68; PULSE 84; RESP 18
[2019-01-19] MEDS: LEVOFLOXACIN 250 MG TAB PO SCH (06:51)
[2019-01-19 07:00] VITALS: BP 117/66; PULSE 73; RESP 18
[2019-01-19] MEDS: SOLIFENACIN 5 MG TAB PO SCH (10:09)
[2019-01-19] MEDS: GABAPENTIN 300 MG CAP PO SCH ×4 (10:09→21:41)
[2019-01-19] MEDS: ASCORBIC ACID 500 MG TAB PO SCH ×2 (10:10→21:41)
[2019-01-19] MEDS: LEVETIRACETAM 500 MG TAB PO SCH ×2 (10:10→21:41)
[2019-01-19] MEDS: BACLOFEN 10 MG TAB PO SCH ×2 (10:10→21:41)
[2019-01-19] MEDS: DOCUSATE SODIUM 100 MG CAP PO SCH ×2 (10:10→21:41)
[2019-01-19] MEDS: MULTIVITAMINS THERAPEUTIC TAB PO SCH (10:10)
[2019-01-19] MEDS: ASPIRIN 81 MG TAB PO SCH (10:10)
[2019-01-19] MEDS: FOLIC ACID 1 MG TAB PO SCH (10:10)
--- NOTE | 2019-01-19 11:49 | PN ---
Date/Time of Note Date/Time of Note DATE: 01/19/19 TIME: 11:48 Assessment/Plan VTE Prophylaxis Risk score (from Ns)>0 risk: 5 SCD applied (from Ns): Yes Pharmacological prophylaxis: LMWH Lines/Catheters IV Catheter Type (from Nrsg): Saline Lock Urinary Cath still in place: No Assessment/Plan Hospital Course -UTI, continue Levaquin. -Seizure vs TIA. 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 EEG is without epileptiform activity, though notable for left frontal breach artifact and left temporal slowing. Continue Keppra, ASA, Lipitor. Dr. Duran is following in neurology consultation. Continue PT,OT. 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 -R sided paralysis Subjective 24 Hr Interval Summary Free Text/Dictation Patient not in room so unable to interview patient Exam/Review of Systems Exam Vitals Vital Signs Date Temp Pulse Resp B/P (MAP) Pulse Ox O2 O2 Flow FiO2 Time Delivery Rate 01/19/19 97.9 73 18 117/66 98 Room Air 07:00 (83) Intake and Output 01/18/19 01/18/19 01/19/19 1515:00 23:00 07:00 IntakeIntake Total 240 ml 1400 ml 850 ml OutputOutput Total 800 ml BalanceBalance 240 ml 600 ml 850 ml Exam Patient not in room so unable to examine Medications Medication Current Medications Docusate Sodium (Colace) 100 mg BID PO Last administered on 01/19/19at 10:10; Admin Dose 100 MG; Start 01/10/19 at 21:00 Senna (Senokot) 1 tab HS PO Last administered on 01/17/19at 22:24; Admin Dose 1 TAB; Start 01/10/19 at 21:00 Lactulose (Enulose) 20 gm DAILY PRN PO CONSTIPATION Last administered on 01/18/19at 18:55; Admin Dose 20 GM; Start 01/10/19 at 20:00 Bisacodyl (Dulcolax Supp) 10 mg DAILY PRN [place] CONSTIPATION; Start 01/10/19 at 20:00 Lorazepam (Ativan) 1 mg Q1H PRN IV SEIZURE; Start 01/10/19 at 20:47 Acetaminophen (Tylenol Tab) 650 mg Q4H PRN PO MILD PAIN(1-3)OR ELEVATED TEMP; Start 01/10/19 at 20:47 Baclofen (Lioresal) 20 mg BID PO Last administered on 01/19/19 10:10; Admin Dose 20 MG; Start 01/10/19 at 20:47 Gabapentin (Neurontin) 300 mg QID PO Last administered on 01/19/19 10:09; Admin Dose 300 MG; Start 01/10/19 at 20:47 Solifenacin (Vesicare) 10 mg DAILY PO Last administered on 01/19/19 10:09; Admin Dose 10 MG; Start 01/10/19 at 20:47 Folic Acid (Folic Acid) 1 mg DAILY PO Last administered on 01/19/19 10:10; Admin Dose 1 MG; Start 01/10/19 at 20:47 Aspirin (Aspirin) 81 mg DAILY PO Last administered on 01/19/19 10:10; Admin Dose 81 MG; Start 01/10/19 at 20:47 Patient Own Medication 1 ea QHS PO Last administered on 01/18/19 21:26; Admin Dose 1 EA; Start 01/10/19 at 20:47 Atorvastatin Calcium (Lipitor) 80 mg HS PO Last administered on 01/18/19 21: 26; Admin Dose 80 MG; Start 01/10/19 at 20:47 Multivitamins Therapeutic (Theragran) 1 tab DAILY PO Last administered on 01/19/19 10:10; Admin Dose 1 TAB; Start 01/10/19 at 20:47 Ascorbic Acid (Vitamin C) 500 mg BID PO Last administered on 01/19/19 10:10; Admin Dose 500 MG; Start 01/10/19 at 20:47 Levetiracetam (Keppra) 500 mg BID PO Last administered on 01/19/19 10:10; Admin Dose 500 MG; Start 01/10/19 at 20:47 Docusate Sodium (Colace) 100 mg BID PRN PO CONSTIPATION; Start 01/10/19 at 20:47 Desmopressin Acetate (Ddavp) 0.1 mg QHS PO Last administered on 01/18/19 21:26; Admin Dose 0.1 MG; Start 01/13/19 at 21:00 Multi-Ingredient Ointment (Eucerin Cream) 1 applic BID PRN TOP rash Last administered on 01/13/19at 08:00; Admin Dose 1 APPLIC; Start 01/12/19 at 16:56 Levofloxacin (Levaquin) 250 mg DAILY@06 PO Last administered on 01/19/19at 06:51; Admin Dose 250 MG; Start 01/17/19 at 06:00 NOMRAN SHAH Jan 19, 2019 11:49
--- NOTE | 2019-01-19 11:53 | PN ---
Date/Time of Note Date/Time of Note DATE: 01/19/19 TIME: 11:52 Subjective Overall feeling better Objective Vital Signs Date Temp Pulse Resp B/P (MAP) Pulse Ox O2 O2 Flow FiO2 Time Delivery Rate 01/19/19 97.9 73 18 117/66 98 Room Air 07:00 (83) Intake and Output 01/18/19 01/18/19 01/19/19 1515:00 23:00 07:00 IntakeIntake Total 240 ml 1400 ml 850 ml OutputOutput Total 800 ml BalanceBalance 240 ml 600 ml 850 ml Exam min/cga transfer Results/Medications Medications Current Medications Docusate Sodium (Colace) 100 mg BID PO Last administered on 01/19/19 10:10; Admin Dose 100 MG; Start 01/10/19 at 21:00 Senna (Senokot) 1 tab HS PO Last administered on 01/17/19 22:24; Admin Dose 1 TAB; Start 01/10/19 at 21:00 Lactulose (Enulose) 20 gm DAILY PRN PO CONSTIPATION Last administered on 01/18/19 18:55; Admin Dose 20 GM; Start 01/10/19 at 20:00 Bisacodyl (Dulcolax Supp) 10 mg DAILY PRN [place] CONSTIPATION; Start 01/10/19 at 20:00 Lorazepam (Ativan) 1 mg Q1H PRN IV SEIZURE; Start 01/10/19 at 20:47 Acetaminophen (Tylenol Tab) 650 mg Q4H PRN PO MILD PAIN(1-3)OR ELEVATED TEMP; Start 01/10/19 at 20:47 Baclofen (Lioresal) 20 mg BID PO Last administered on 01/19/19 10:10; Admin Dose 20 MG; Start 01/10/19 at 20:47 Gabapentin (Neurontin) 300 mg QID PO Last administered on 01/19/19 10:09; Admin Dose 300 MG; Start 01/10/19 at 20:47 Solifenacin (Vesicare) 10 mg DAILY PO Last administered on 01/19/19 10:09; Admin Dose 10 MG; Start 01/10/19 at 20:47 Folic Acid (Folic Acid) 1 mg DAILY PO Last administered on 01/19/19 10:10; Admin Dose 1 MG; Start 01/10/19 at 20:47 Aspirin (Aspirin) 81 mg DAILY PO Last administered on 01/19/19 10:10; Admin Dose 81 MG; Start 01/10/19 at 20:47 Patient Own Medication 1 ea QHS PO Last administered on 01/18/19 21:26; Admin Dose 1 EA; Start 01/10/19 at 20:47 Atorvastatin Calcium (Lipitor) 80 mg HS PO Last administered on 01/18/19 21:26; Admin Dose 80 MG; Start 01/10/19 at 20:47 Multivitamins Therapeutic (Theragran) 1 tab DAILY PO Last administered on 01/19/19 10:10; Admin Dose 1 TAB; Start 01/10/19 at 20:47 Ascorbic Acid (Vitamin C) 500 mg BID PO Last administered on 01/19/19 10:10; Admin Dose 500 MG; Start 01/10/19 at 20:47 Levetiracetam (Keppra) 500 mg BID PO Last administered on 01/19/19 10:10; Admin Dose 500 MG; Start 01/10/19 at 20:47 Docusate Sodium (Colace) 100 mg BID PRN PO CONSTIPATION; Start 01/10/19 at 20:47 Desmopressin Acetate (Ddavp) 0.1 mg QHS PO Last administered on 01/18/19 21:26; Admin Dose 0.1 MG; Start 01/13/19 at 21:00 Multi-Ingredient Ointment (Eucerin Cream) 1 applic BID PRN TOP rash Last administered on 01/13/19 08:00; Admin Dose 1 APPLIC; Start 01/12/19 at 16:56 Levofloxacin (Levaquin) 250 mg DAILY@06 PO Last administered on 01/19/19 06:51; Admin Dose 250 MG; Start 01/17/19 at 06:00 Assessment/Plan Additional Assessment/Plan Rehab- 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 Excellent progress. Case d/w PT and patient. Patient is concerned about knee buckling. Will order lightweight brace to assist in knee stability Seizure disorder-seizure precautions Urinary incontinence with neurogenic bladder-bladder program SYED ROMO MD Jan 19, 2019 11:53
[2019-01-19 14:00] VITALS: BP 118/70; PULSE 70; RESP 18
[2019-01-19] MEDS: SENNA TAB PO SCH (21:41)
[2019-01-19] MEDS: MYRBETRIQ 25 MG PO SCH (21:41)
[2019-01-19] MEDS: DESMOPRESSIN 0.1 MG TAB PO SCH (21:41)
[2019-01-19] MEDS: ATORVASTATIN 80 MG TAB PO SCH (21:41)
[2019-01-20 02:28] VITALS: BP 112/64; PULSE 77; RESP 18
[2019-01-20] MEDS: LEVOFLOXACIN 250 MG TAB PO SCH (06:53)
[2019-01-20 07:30] VITALS: BP 112/62; PULSE 80; RESP 20
[2019-01-20] MEDS: SOLIFENACIN 5 MG TAB PO SCH (09:11)
[2019-01-20] MEDS: BACLOFEN 10 MG TAB PO SCH ×2 (09:11→20:56)
[2019-01-20] MEDS: ASCORBIC ACID 500 MG TAB PO SCH ×2 (09:12→20:56)
[2019-01-20] MEDS: FOLIC ACID 1 MG TAB PO SCH (09:12)
[2019-01-20] MEDS: DOCUSATE SODIUM 100 MG CAP PO SCH ×2 (09:12→20:56)
[2019-01-20] MEDS: ASPIRIN 81 MG TAB PO SCH (09:12)
[2019-01-20] MEDS: MULTIVITAMINS THERAPEUTIC TAB PO SCH (09:12)
[2019-01-20] MEDS: GABAPENTIN 300 MG CAP PO SCH ×4 (09:12→20:56)
[2019-01-20] MEDS: LEVETIRACETAM 500 MG TAB PO SCH ×2 (09:12→20:56)
--- NOTE | 2019-01-20 11:21 | PN ---
Date/Time of Note Date/Time of Note DATE: 01/20/19 TIME: 11:21 Assessment/Plan VTE Prophylaxis Risk score (from Ns)>0 risk: 3 SCD applied (from Ns): Yes Pharmacological prophylaxis: LMWH Lines/Catheters IV Catheter Type (from Nrs): Saline Lock Urinary Cath still in place: No Assessment/Plan Hospital Course -UTI, continue Levaquin. -Seizure vs TIA. 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 EEG is without epileptiform activity, though notable for left frontal breach artifact and left temporal slowing. Continue Keppra, ASA, Lipitor. Dr. Duran is following in neurology consultation. Continue PT,OT. 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 -R sided paralysis Subjective 24 Hr Interval Summary Free Text/Dictation Patient has no complaints Exam/Review of Systems Exam Vitals Vital Signs Date Temp Pulse Resp B/P (MAP) Pulse Ox O2 O2 Flow FiO2 Time Delivery Rate 01/20/19 97.5 80 20 112/62 97 Room Air 07:30 (79) Intake and Output 01/19/19 01/19/19 01/20/19 1515:00 23:00 07:00 IntakeIntake Total 360 ml 630 ml 50 ml OutputOutput Total 400 ml 400 ml BalanceBalance -40 ml 230 ml 50 ml Constitutional: well developed Head: normocephalic, atraumatic Neck: supple Respiratory: clear to auscultation Cardiovascular: regular rate and rhythm Gastrointestinal: soft, non-tender Extremities: normal pulses Medications Medication Current Medications Docusate Sodium (Colace) 100 mg BID PO Last administered on 01/20/19at 09:12; Admin Dose 100 MG; Start 01/10/19 at 21:00 Senna (Senokot) 1 tab HS PO Last administered on 01/19/19at 21:41; Admin Dose 1 TAB; Start 01/10/19 at 21:00 Lactulose (Enulose) 20 gm DAILY PRN PO CONSTIPATION Last administered on 01/18/19at 18:55; Admin Dose 20 GM; Start 01/10/19 at 20:00 Bisacodyl (Dulcolax Supp) 10 mg DAILY PRN [place] CONSTIPATION; Start 01/10/19 at 20:00 Lorazepam (Ativan) 1 mg Q1H PRN IV SEIZURE; Start 01/10/19 at 20:47 Acetaminophen (Tylenol Tab) 650 mg Q4H PRN PO MILD PAIN(1-3)OR ELEVATED TEMP; Start 01/10/19 at 20:47 Baclofen (Lioresal) 20 mg BID PO Last administered on 01/20/19 09:11; Admin Dose 20 MG; Start 01/10/19 at 20:47 Gabapentin (Neurontin) 300 mg QID PO Last administered on 01/20/19 09:12; Admin Dose 300 MG; Start 01/10/19 at 20:47 Solifenacin (Vesicare) 10 mg DAILY PO Last administered on 01/20/19 09:11; Admin Dose 10 MG; Start 01/10/19 at 20:47 Folic Acid (Folic Acid) 1 mg DAILY PO Last administered on 01/20/19 09:12; Admin Dose 1 MG; Start 01/10/19 at 20:47 Aspirin (Aspirin) 81 mg DAILY PO Last administered on 01/20/19 09:12; Admin Dose 81 MG; Start 01/10/19 at 20:47 Patient Own Medication 1 ea QHS PO Last administered on 01/19/19 21:41; Admin Dose 1 EA; Start 01/10/19 at 20:47 Atorvastatin Calcium (Lipitor) 80 mg HS PO Last administered on 01/19/19 21:41; Admin Dose 80 MG; Start 01/10/19 at 20:47 Multivitamins Therapeutic (Theragran) 1 tab DAILY PO Last administered on 01/20/19 09:12; Admin Dose 1 TAB; Start 01/10/19 at 20:47 Ascorbic Acid (Vitamin C) 500 mg BID PO Last administered on 01/20/19 09:12; Admin Dose 500 MG; Start 01/10/19 at 20:47 Levetiracetam (Keppra) 500 mg BID PO Last administered on 01/20/19 09:12; Admin Dose 500 MG; Start 01/10/19 at 20:47 Docusate Sodium (Colace) 100 mg BID PRN PO CONSTIPATION; Start 01/10/19 at 20:47 Desmopressin Acetate (Ddavp) 0.1 mg QHS PO Last administered on 6/15/19at 21:41; Admin Dose 0.1 MG; Start 01/13/19 at 21:00 Multi-Ingredient Ointment (Eucerin Cream) 1 applic BID PRN TOP rash Last administered on 01/13/19 08:00; Admin Dose 1 APPLIC; Start 01/12/19 at 16:56 Levofloxacin (Levaquin) 250 mg DAILY@06 PO Last administered on 01/20/19 06:53; Admin Dose 250 MG; Start 01/17/19 at 06:00 NORMAN SHAH Jan 20, 2019 11:21
[2019-01-20 14:00] VITALS: BP 131/67; PULSE 82; RESP 18
[2019-01-20 20:00] VITALS: BP 102/61; PULSE 88; RESP 18
[2019-01-20] MEDS: ATORVASTATIN 80 MG TAB PO SCH (20:56)
[2019-01-20] MEDS: DESMOPRESSIN 0.1 MG TAB PO SCH (20:56)
[2019-01-20] MEDS: MYRBETRIQ 25 MG PO SCH (20:57)
[2019-01-20] MEDS: SENNA TAB PO SCH (20:57)
[2019-01-21 02:22] VITALS: BP 99/55; PULSE 83; RESP 18
[2019-01-21] MEDS: LEVOFLOXACIN 250 MG TAB PO SCH (06:44)
[2019-01-21 07:00] VITALS: BP 100/64; PULSE 83; RESP 18
[2019-01-21] MEDS: SOLIFENACIN 5 MG TAB PO SCH (09:12)
[2019-01-21] MEDS: ASPIRIN 81 MG TAB PO SCH (09:13)
[2019-01-21] MEDS: GABAPENTIN 300 MG CAP PO SCH ×4 (09:13→21:03)
[2019-01-21] MEDS: DOCUSATE SODIUM 100 MG CAP PO SCH ×2 (09:13→21:03)
[2019-01-21] MEDS: LEVETIRACETAM 500 MG TAB PO SCH ×2 (09:13→21:03)
[2019-01-21] MEDS: BACLOFEN 10 MG TAB PO SCH ×2 (09:14→21:03)
[2019-01-21] MEDS: ASCORBIC ACID 500 MG TAB PO SCH ×2 (09:14→21:02)
[2019-01-21] MEDS: MULTIVITAMINS THERAPEUTIC TAB PO SCH (09:14)
[2019-01-21] MEDS: FOLIC ACID 1 MG TAB PO SCH (09:14)
--- NOTE | 2019-01-21 09:29 | PN ---
Date/Time of Note Date/Time of Note DATE: 01/21/19 TIME: 09:29 Assessment/Plan VTE Prophylaxis Risk score (from Ns)>0 risk: 5 SCD applied (from Nsg): Yes Pharmacological prophylaxis: other Lines/Catheters IV Catheter Type (from Nrsg): Saline Lock Urinary Cath still in place: No Assessment/Plan Hospital Course No acute events overnight, patient continues to participate in occupational physical therapy, no change in neuro status. Assessment/Plan -UTI, continue Levaquin. -Seizure vs TIA. 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 EEG is without epileptiform activity, though notable for left frontal breach artifact and left temporal slowing. Continue Keppra, ASA, Lipitor. Dr. Duran is following in neurology consultation. Continue PT,OT. 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 -R sided paralysis -Malnutrition Further recommendations based on clinical course. Plan of care discussed with Dr. Cassidy. Exam/Review of Systems Exam Vitals Vital Signs Date Temp Pulse Resp B/P (MAP) Pulse Ox O2 O2 Flow FiO2 Time Delivery Rate 01/21/19 97.7 83 18 100/64 95 Room Air 07:00 (76) Intake and Output 01/20/19 01/20/19 01/21/19 1515:00 23:00 07:00 IntakeIntake Total 970 ml BalanceBalance 970 ml Exam Constitutional: alert, oriented Neck: supple Respiratory: clear to auscultation Cardiovascular: nl pulses Gastrointestinal: soft, non-tender Extremities: normal pulses Neurological: other (Right-sided paralysis) Medications Medication Current Medications Docusate Sodium (Colace) 100 mg BID PO Last administered on 01/21/19at 09:13; Admin Dose 100 MG; Start 01/10/19 at 21:00 Senna (Senokot) 1 tab HS PO Last administered on 01/19/19at 21:41; Admin Dose 1 TAB; Start 01/10/19 at 21:00 Lactulose (Enulose) 20 gm DAILY PRN PO CONSTIPATION Last administered on 01/18/19at 18:55; Admin Dose 20 GM; Start 01/10/19 at 20:00 Bisacodyl (Dulcolax Supp) 10 mg DAILY PRN [place] CONSTIPATION; Start 01/10/19 at 20:00 Lorazepam (Ativan) 1 mg Q1H PRN IV SEIZURE; Start 01/10/19 at 20:47 Acetaminophen (Tylenol Tab) 650 mg Q4H PRN PO MILD PAIN(1-3)OR ELEVATED TEMP; Start 01/10/19 at 20:47 Baclofen (Lioresal) 20 mg BID PO Last administered on 01/21/19 09:14; Admin Dose 20 MG; Start 01/10/19 at 20:47 Gabapentin (Neurontin) 300 mg QID PO Last administered on 01/21/19 09:13; Admin Dose 300 MG; Start 01/10/19 at 20:47 Solifenacin (Vesicare) 10 mg DAILY PO Last administered on 01/21/19 09:12; Admin Dose 10 MG; Start 01/10/19 at 20:47 Folic Acid (Folic Acid) 1 mg DAILY PO Last administered on 01/21/19 09:14; Admin Dose 1 MG; Start 01/10/19 at 20:47 Aspirin (Aspirin) 81 mg DAILY PO Last administered on 01/21/19 09:13; Admin Dose 81 MG; Start 01/10/19 at 20:47 Patient Own Medication 1 ea QHS PO Last administered on 01/20/19 20:57; Admin Dose 1 EA; Start 01/10/19 at 20:47 Atorvastatin Calcium (Lipitor) 80 mg HS PO Last administered on 01/20/19 20:56; Admin Dose 80 MG; Start 01/10/19 at 20:47 Multivitamins Therapeutic (Theragran) 1 tab DAILY PO Last administered on 01/21/19 09:14; Admin Dose 1 TAB; Start 01/10/19 at 20:47 Ascorbic Acid (Vitamin C) 500 mg BID PO Last administered on 01/21/19 09:14; Admin Dose 500 MG; Start 01/10/19 at 20:47 Levetiracetam (Keppra) 500 mg BID PO Last administered on 01/21/19 09:13; Admin Dose 500 MG; Start 01/10/19 at 20:47 Docusate Sodium (Colace) 100 mg BID PRN PO CONSTIPATION; Start 01/10/19 at 20:47 Desmopressin Acetate (Ddavp) 0.1 mg QHS PO Last administered on 01/20/19at 20:56; Admin Dose 0.1 MG; Start 01/13/19 at 21:00 Multi-Ingredient Ointment (Eucerin Cream) 1 applic BID PRN TOP rash Last administered on 01/13/19at 08:00; Admin Dose 1 APPLIC; Start 01/12/19 at 16:56 Levofloxacin (Levaquin) 250 mg DAILY@06 PO Last administered on 01/21/19at 06:44; Admin Dose 250 MG; Start 01/17/19 at 06:00 ZINA IBARRA Jan 21, 2019 09:29
--- NOTE | 2019-01-21 11:28 | PN ---
Date/Time of Note Date/Time of Note DATE: 01/21/19 TIME: 11:27 Subjective Overall feeling better Objective Vital Signs Date Temp Pulse Resp B/P (MAP) Pulse Ox O2 O2 Flow FiO2 Time Delivery Rate 01/21/19 97.7 83 18 100/64 95 Room Air 07:00 (76) Intake and Output 01/20/19 01/20/19 01/21/19 1515:00 23:00 07:00 IntakeIntake Total 970 ml BalanceBalance 970 ml Exam pulm-cta cga transfer Results/Medications Medications Current Medications Docusate Sodium (Colace) 100 mg BID PO Last administered on 01/21/19 09:13; Admin Dose 100 MG; Start 01/10/19 at 21:00 Senna (Senokot) 1 tab HS PO Last administered on 01/19/19at 21:41; Admin Dose 1 TAB; Start 01/10/19 at 21:00 Lactulose (Enulose) 20 gm DAILY PRN PO CONSTIPATION Last administered on 01/18/19at 18:55; Admin Dose 20 GM; Start 01/10/19 at 20:00 Bisacodyl (Dulcolax Supp) 10 mg DAILY PRN [place] CONSTIPATION; Start 01/10/19 at 20:00 Lorazepam (Ativan) 1 mg Q1H PRN IV SEIZURE; Start 01/10/19 at 20:47 Acetaminophen (Tylenol Tab) 650 mg Q4H PRN PO MILD PAIN(1-3)OR ELEVATED TEMP; Start 01/10/19 at 20:47 Baclofen (Lioresal) 20 mg BID PO Last administered on 01/21/19at 09:14; Admin Dose 20 MG; Start 01/10/19 at 20:47 Gabapentin (Neurontin) 300 mg QID PO Last administered on 01/21/19 09:13; Admin Dose 300 MG; Start 01/10/19 at 20:47 Solifenacin (Vesicare) 10 mg DAILY PO Last administered on 01/21/19 09:12; Admin Dose 10 MG; Start 01/10/19 at 20:47 Folic Acid (Folic Acid) 1 mg DAILY PO Last administered on 01/21/19 09:14; Admin Dose 1 MG; Start 01/10/19 at 20:47 Aspirin (Aspirin) 81 mg DAILY PO Last administered on 01/21/19 09:13; Admin Dose 81 MG; Start 01/10/19 at 20:47 Patient Own Medication 1 ea QHS PO Last administered on 01/20/19 20:57; Admin Dose 1 EA; Start 01/10/19 at 20:47 Atorvastatin Calcium (Lipitor) 80 mg HS PO Last administered on 01/20/19 20:56; Admin Dose 80 MG; Start 01/10/19 at 20:47 Multivitamins Therapeutic (Theragran) 1 tab DAILY PO Last administered on 01/21/19 09:14; Admin Dose 1 TAB; Start 01/10/19 at 20:47 Ascorbic Acid (Vitamin C) 500 mg BID PO Last administered on 01/21/19 09:14; Admin Dose 500 MG; Start 01/10/19 at 20:47 Levetiracetam (Keppra) 500 mg BID PO Last administered on 01/21/19 09:13; Admin Dose 500 MG; Start 01/10/19 at 20:47 Docusate Sodium (Colace) 100 mg BID PRN PO CONSTIPATION; Start 01/10/19 at 20:47 Desmopressin Acetate (Ddavp) 0.1 mg QHS PO Last administered on 01/20/19 20:56; Admin Dose 0.1 MG; Start 01/13/19 at 21:00 Multi-Ingredient Ointment (Eucerin Cream) 1 applic BID PRN TOP rash Last administered on 01/13/19 08:00; Admin Dose 1 APPLIC; Start 01/12/19 at 16:56 Levofloxacin (Levaquin) 250 mg DAILY@06 PO Last administered on 01/21/19 06:44; Admin Dose 250 MG; Start 01/17/19 at 06:00 Assessment/Plan Additional Assessment/Plan Rehab- 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 Steady progress. Anticipate home with caregiver Monday Seizure disorder-seizure precautions Urinary incontinence with neurogenic bladder-bladder program SYED ROMO MD Jan 21, 2019 11:28
[2019-01-21 14:00] VITALS: BP 107/68; PULSE 84; RESP 18
[2019-01-21 20:13] VITALS: BP 117/75; PULSE 74; RESP 18
[2019-01-21] MEDS: SENNA TAB PO SCH (21:00)
[2019-01-21] MEDS: MYRBETRIQ 25 MG PO SCH (21:02)
[2019-01-21] MEDS: ATORVASTATIN 80 MG TAB PO SCH (21:03)
[2019-01-21] MEDS: DESMOPRESSIN 0.1 MG TAB PO SCH (21:03)
[2019-01-22 02:13] VITALS: BP 130/73; PULSE 91; RESP 18
[2019-01-22] MEDS: LEVOFLOXACIN 250 MG TAB PO SCH (06:29)
[2019-01-22 07:00] VITALS: BP 108/66; PULSE 83; RESP 18
[2019-01-22] MEDS: BACLOFEN 10 MG TAB PO SCH ×2 (10:35→21:15)
[2019-01-22] MEDS: DOCUSATE SODIUM 100 MG CAP PO SCH ×2 (10:35→21:15)
[2019-01-22] MEDS: MULTIVITAMINS THERAPEUTIC TAB PO SCH (10:35)
[2019-01-22] MEDS: ASCORBIC ACID 500 MG TAB PO SCH ×2 (10:35→21:15)
[2019-01-22] MEDS: SOLIFENACIN 5 MG TAB PO SCH (10:35)
[2019-01-22] MEDS: LEVETIRACETAM 500 MG TAB PO SCH ×2 (10:35→21:15)
[2019-01-22] MEDS: GABAPENTIN 300 MG CAP PO SCH ×4 (10:36→21:23)
[2019-01-22] MEDS: FOLIC ACID 1 MG TAB PO SCH (10:36)
[2019-01-22] MEDS: ASPIRIN 81 MG TAB PO SCH (10:36)
--- NOTE | 2019-01-22 11:18 | PN ---
Date/Time of Note Date/Time of Note DATE: 01/22/19 TIME: 11:17 Subjective Patietn motivated, up for activities Objective Vital Signs Date Temp Pulse Resp B/P (MAP) Pulse Ox O2 O2 Flow FiO2 Time Delivery Rate 01/22/19 97.6 83 18 108/66 97 Room Air 07:00 (80) Intake and Output 01/21/19 01/21/19 01/22/19 1515:00 23:00 07:00 IntakeIntake Total 1880 ml OutputOutput Total 600 ml BalanceBalance 1280 ml Exam min/cga transfers [place] wheelchair mobility Results/Medications Medications Current Medications Docusate Sodium (Colace) 100 mg BID PO Last administered on 01/22/19 10:35; Admin Dose 100 MG; Start 01/10/19 at 21:00 Senna (Senokot) 1 tab HS PO Last administered on 01/19/19 21:41; Admin Dose 1 TAB; Start 01/10/19 at 21:00 Lactulose (Enulose) 20 gm DAILY PRN PO CONSTIPATION Last administered on 01/18/19at 18:55; Admin Dose 20 GM; Start 01/10/19 at 20:00 Bisacodyl (Dulcolax Supp) 10 mg DAILY PRN [place] CONSTIPATION; Start 01/10/19 at 20 :00 Lorazepam (Ativan) 1 mg Q1H PRN IV SEIZURE; Start 01/10/19 at 20:47 Acetaminophen (Tylenol Tab) 650 mg Q4H PRN PO MILD PAIN(1-3)OR ELEVATED TEMP; Start 01/10/19 at 20:47 Baclofen (Lioresal) 20 mg BID PO Last administered on 01/22/19at 10:35; Admin Dose 20 MG; Start 01/10/19 at 20:47 Gabapentin (Neurontin) 300 mg QID PO Last administered on 01/22/19 10:36; Admin Dose 300 MG; Start 01/10/19 at 20:47 Solifenacin (Vesicare) 10 mg DAILY PO Last administered on 01/22/19 10:35; Admin Dose 10 MG; Start 01/10/19 at 20:47 Folic Acid (Folic Acid) 1 mg DAILY PO Last administered on 01/22/19at 10:36; Admin Dose 1 MG; Start 01/10/19 at 20:47 Aspirin (Aspirin) 81 mg DAILY PO Last administered on 01/22/19 10:36; Admin Dose 81 MG; Start 01/10/19 at 20:47 Patient Own Medication 1 ea QHS PO Last administered on 01/21/19 21:02; Admin Dose 1 EA; Start 01/10/19 at 20:47 Atorvastatin Calcium (Lipitor) 80 mg HS PO Last administered on 01/21/19 21:03; Admin Dose 80 MG; Start 01/10/19 at 20:47 Multivitamins Therapeutic (Theragran) 1 tab DAILY PO Last administered on 01/22/19 10:35; Admin Dose 1 TAB; Start 01/10/19 at 20:47 Ascorbic Acid (Vitamin C) 500 mg BID PO Last administered on 01/22/19 10:35; Admin Dose 500 MG; Start 01/10/19 at 20:47 Levetiracetam (Keppra) 500 mg BID PO Last administered on 01/22/19 10:35; Admin Dose 500 MG; Start 01/10/19 at 20:47 Docusate Sodium (Colace) 100 mg BID PRN PO CONSTIPATION; Start 01/10/19 at 20:47 Desmopressin Acetate (Ddavp) 0.1 mg QHS PO Last administered on 01/21/19 21:03; Admin Dose 0.1 MG; Start 01/13/19 at 21:00 Multi-Ingredient Ointment (Eucerin Cream) 1 applic BID PRN TOP rash Last administered on 01/13/19 08:00; Admin Dose 1 APPLIC; Start 01/12/19 at 16:56 Levofloxacin (Levaquin) 250 mg DAILY@06 PO Last administered on 01/22/19 06:29; Admin Dose 250 MG; Start 01/17/19 at 06:00 Assessment/Plan Additional Assessment/Plan Rehab- 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 Progressing with program. Anticipate home tomorrow Seizure disorder-seizure precautions Urinary incontinence with neurogenic bladder-bladder program SYED ROMO MD Jan 22, 2019 11:18
[2019-01-22 14:00] VITALS: BP 102/62; PULSE 82; RESP 18
--- NOTE | 2019-01-22 16:48 | PN ---
Date/Time of Note Date/Time of Note DATE: 01/22/19 TIME: 16:47 Assessment/Plan VTE Prophylaxis Risk score (from Ns)>0 risk: 4 SCD applied (from Ns): Yes Pharmacological prophylaxis: other Lines/Catheters IV Catheter Type (from Nrs): Saline Lock Urinary Cath still in place: No Assessment/Plan Hospital Course Patient denies any headache he denies any change in neuro status patient is alert and oriented oriented, patient continues to participate in occupational physical therapy. DC planning Assessment/Plan -UTI, s/p Levaquin. -Seizure vs TIA. 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 EEG is without epileptiform activity, though notable for left frontal breach artifact and left temporal slowing. Continue Keppra, ASA, Lipitor. Dr. Duran is following in neurology consultation. Continue PT,OT. 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 -R sided paralysis -Malnutrition Further recommendations based on clinical course. Plan of care discussed with Dr. Cassidy. Exam/Review of Systems Exam Vitals Vital Signs Date Temp Pulse Resp B/P (MAP) Pulse Ox O2 O2 Flow FiO2 Time Delivery Rate 01/22/19 97.5 82 18 102/62 98 Room Air 14:00 (75) Intake and Output 01/21/19 01/21/19 01/22/19 1515:00 23:00 07:00 IntakeIntake Total 1880 ml OutputOutput Total 600 ml BalanceBalance 1280 ml Exam Constitutional: alert, oriented Neck: supple Respiratory: clear to auscultation Cardiovascular: nl pulses Gastrointestinal: soft, non-tender Extremities: normal pulses Neurological: other (Right-sided paralysis) Medications Medication Current Medications Docusate Sodium (Colace) 100 mg BID PO Last administered on 01/22/19at 10:35; Admin Dose 100 MG; Start 01/10/19 at 21:00 Senna (Senokot) 1 tab HS PO Last administered on 01/19/19at 21:41; Admin Dose 1 TAB; Start 01/10/19 at 21:00 Lactulose (Enulose) 20 gm DAILY PRN PO CONSTIPATION Last administered on 01/18/19at 18:55; Admin Dose 20 GM; Start 01/10/19 at 20:00 Bisacodyl (Dulcolax Supp) 10 mg DAILY PRN [place] CONSTIPATION; Start 01/10/19 at 20:00 Lorazepam (Ativan) 1 mg Q1H PRN IV SEIZURE; Start 01/10/19 at 20:47 Acetaminophen (Tylenol Tab) 650 mg Q4H PRN PO MILD PAIN(1-3)OR ELEVATED TEMP; Start 01/10/19 at 20:47 Baclofen (Lioresal) 20 mg BID PO Last administered on 01/22/19 10:35; Admin Dose 20 MG; Start 01/10/19 at 20:47 Gabapentin (Neurontin) 300 mg QID PO Last administered on 01/22/19 12:45; Admin Dose 300 MG; Start 01/10/19 at 20:47 Solifenacin (Vesicare) 10 mg DAILY PO Last administered on 01/22/19 10:35; Admin Dose 10 MG; Start 01/10/19 at 20:47 Folic Acid (Folic Acid) 1 mg DAILY PO Last administered on 01/22/19 10:36; Admin Dose 1 MG; Start 01/10/19 at 20:47 Aspirin (Aspirin) 81 mg DAILY PO Last administered on 01/22/19 10:36; Admin Dose 81 MG; Start 01/10/19 at 20:47 Patient Own Medication 1 ea QHS PO Last administered on 01/21/19at 21:02; Admin Dose 1 EA; Start 01/10/19 at 20:47 Atorvastatin Calcium (Lipitor) 80 mg HS PO Last administered on 01/21/19 21:03; Admin Dose 80 MG; Start 01/10/19 at 20:47 Multivitamins Therapeutic (Theragran) 1 tab DAILY PO Last administered on 01/22/19 10:35; Admin Dose 1 TAB; Start 01/10/19 at 20:47 Ascorbic Acid (Vitamin C) 500 mg BID PO Last administered on 01/22/19 10:35; Admin Dose 500 MG; Start 01/10/19 at 20:47 Levetiracetam (Keppra) 500 mg BID PO Last administered on 01/22/19 10:35; Admin Dose 500 MG; Start 01/10/19 at 20:47 Docusate Sodium (Colace) 100 mg BID PRN PO CONSTIPATION; Start 01/10/19 at 20:47 Desmopressin Acetate (Ddavp) 0.1 mg QHS PO Last administered on 01/21/19at 21:03; Admin Dose 0.1 MG; Start 01/13/19 at 21:00 Multi-Ingredient Ointment (Eucerin Cream) 1 applic BID PRN TOP rash Last ad ministered on 01/13/19at 08:00; Admin Dose 1 APPLIC; Start 01/12/19 at 16:56 Levofloxacin (Levaquin) 250 mg DAILY@06 PO Last administered on 01/22/19at 06:29; Admin Dose 250 MG; Start 01/17/19 at 06:00 ZINA IBARRA Jan 22, 2019 16:48
[2019-01-22 20:00] VITALS: BP 134/69; PULSE 85; RESP 18
[2019-01-22] MEDS: ATORVASTATIN 80 MG TAB PO SCH (21:15)
[2019-01-22] MEDS: SENNA TAB PO SCH (21:15)
[2019-01-22] MEDS: DESMOPRESSIN 0.1 MG TAB PO SCH (21:15)
[2019-01-22] MEDS: MYRBETRIQ 25 MG PO SCH (21:16)
[2019-01-23] MEDS: LEVOFLOXACIN 250 MG TAB PO SCH (06:49)
[2019-01-23 07:00] VITALS: BP 116/62; PULSE 86; RESP 18
[2019-01-23] MEDS: SOLIFENACIN 5 MG TAB PO SCH (09:27)
[2019-01-23] MEDS: DOCUSATE SODIUM 100 MG CAP PO SCH (09:27)
[2019-01-23] MEDS: FOLIC ACID 1 MG TAB PO SCH (09:27)
[2019-01-23] MEDS: MULTIVITAMINS THERAPEUTIC TAB PO SCH (09:28)
[2019-01-23] MEDS: LEVETIRACETAM 500 MG TAB PO SCH (09:28)
[2019-01-23] MEDS: GABAPENTIN 300 MG CAP PO SCH ×2 (09:28→12:16)
[2019-01-23] MEDS: ASPIRIN 81 MG TAB PO SCH (09:28)
[2019-01-23] MEDS: BACLOFEN 10 MG TAB PO SCH (09:28)
[2019-01-23] MEDS: ASCORBIC ACID 500 MG TAB PO SCH (09:28)
--- NOTE | 2019-01-23 09:40 | PN ---
Date/Time of Note Date/Time of Note DATE: 01/23/19 TIME: 09:40 Assessment/Plan VTE Prophylaxis Risk score (from Ns)>0 risk: 5 SCD applied (from Nsg): Yes Pharmacological prophylaxis: other Lines/Catheters IV Catheter Type (from Nrsg): Saline Lock Urinary Cath still in place: No Assessment/Plan Hospital Course Pt remains hemodynamically stable, afebrile, no seizure activity noted, pt has progress with PT, d/c planning. Assessment/Plan -UTI, s/p Levaquin. -Seizure vs TIA. 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 EEG is without epileptiform activity, though notable for left frontal breach artifact and left temporal slowing. Continue Keppra, ASA, Lipitor. Dr. Duran is following in neurology consultation. Continue PT,OT. 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 -R sided paralysis -Malnutrition Further recommendations based on clinical course. Plan of care discussed with Dr. Cassidy. Exam/Review of Systems Exam Vitals Vital Signs Date Temp Pulse Resp B/P (MAP) Pulse Ox O2 O2 Flow FiO2 Time Delivery Rate 01/23/19 98.1 86 18 116/62 95 Room Air 07:00 (80) Intake and Output 01/22/19 01/22/19 01/23/19 1515:00 23:00 07:00 IntakeIntake Total 1200 ml 330 ml OutputOutput Total 600 ml BalanceBalance 600 ml 330 ml Exam Constitutional: alert, oriented Neck: supple Respiratory: clear to auscultation Cardiovascular: nl pulses Gastrointestinal: soft, non-tender Extremities: normal pulses Neurological: other (Right-sided paralysis) Medications Medication Current Medications Docusate Sodium (Colace) 100 mg BID PO Last administered on 01/23/19at 09:27; Admin Dose 100 MG; Start 01/10/19 at 21:00 Senna (Senokot) 1 tab HS PO Last administered on 01/22/19at 21:15; Admin Dose 1 TAB; Start 01/10/19 at 21:00 Lactulose (Enulose) 20 gm DAILY PRN PO CONSTIPATION Last administered on 01/18/19at 18:55; Admin Dose 20 GM; Start 01/10/19 at 20:00 Bisacodyl (Dulcolax Supp) 10 mg DAILY PRN [place] CONSTIPATION; Start 01/10/19 at 20:00 Lorazepam (Ativan) 1 mg Q1H PRN IV SEIZURE; Start 01/10/19 at 20:47 Acetaminophen (Tylenol Tab) 650 mg Q4H PRN PO MILD PAIN(1-3)OR ELEVATED TEMP; Start 01/10/19 at 20:47 Baclofen (Lioresal) 20 mg BID PO Last administered on 01/23/19 09:28; Admin Dose 20 MG; Start 01/10/19 at 20:47 Gabapentin (Neurontin) 300 mg QID PO Last administered on 01/23/19 09:28; Admin Dose 300 MG; Start 01/10/19 at 20:47 Solifenacin (Vesicare) 10 mg DAILY PO Last administered on 01/23/19 09:27; Admin Dose 10 MG; Start 01/10/19 at 20:47 Folic Acid (Folic Acid) 1 mg DAILY PO Last administered on 01/23/19 09:27; Admin Dose 1 MG; Start 01/10/19 at 20:47 Aspirin (Aspirin) 81 mg DAILY PO Last administered on 01/23/19 09:28; Admin Dose 81 MG; Start 01/10/19 at 20:47 Patient Own Medication 1 ea QHS PO Last administered on 01/22/19 21:16; Admin Dose 1 EA; Start 01/10/19 at 20:47 Atorvastatin Calcium (Lipitor) 80 mg HS PO Last administered on 01/22/19 21:15; Admin Dose 80 MG; Start 01/10/19 at 20:47 Multivitamins Therapeutic (Theragran) 1 tab DAILY PO Last administered on 09:28; Admin Dose 1 TAB; Start 01/10/19 at 20:47 Ascorbic Acid (Vitamin C) 500 mg BID PO Last administered on 01/23/19 09:28; Admin Dose 500 MG; Start 01/10/19 at 20:47 Levetiracetam (Keppra) 500 mg BID PO Last administered on 01/23/19 09:28; Ad min Dose 500 MG; Start 01/10/19 at 20:47 Docusate Sodium (Colace) 100 mg BID PRN PO CONSTIPATION; Start 01/10/19 at 20:47 Desmopressin Acetate (Ddavp) 0.1 mg QHS PO Last administered on 01/22/19at 21:15; Admin Dose 0.1 MG; Start 01/13/19 at 21:00 Multi-Ingredient Ointment (Eucerin Cream) 1 applic BID PRN TOP rash Last administered on 01/13/19at 08:00; Admin Dose 1 APPLIC; Start 01/12/19 at 16:56 Levofloxacin (Levaquin) 250 mg DAILY@06 PO Last administered on 01/23/19at 06:49; Admin Dose 250 MG; Start 01/17/19 at 06:00 ZINA IBARRA Jan 23, 2019 09:40
--- NOTE | 2019-01-25 13:04 | DS ---
Date/Time of Note Date/Time of Note DATE: 01/25/19 TIME: 13:01 Discharge Summary Admission/Discharge Info Admit Date/Time Jan 10, 2019 at 19:07 Discharge Date/Time Jan 23, 2019 at 12:48 Discharge Diagnosis 1. 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 2. Seizure disorder. 3. Urinary incontinence with neurogenic bladder. 4. Improvements in self-care and mobility. Patient Condition: Good Hospital Course Patient was admitted for comprehensive interdisciplinary rehabilitation and made excellent functional gains. She progressed from a max assist for self care and mobility to a min assist seated UB self care tasks, and CGA for transfers, and CO for WC mobility. Her caregiver was safely trained in assistance. Patient is being discharged home with PT/OT follow up. She will follow up with her PMD. Medications are per the medication reconciliation sheet. Home Meds Reported Medications Solifenacin* (Vesicare*) 10 Mg Tablet, 10 MG PO DAILY, TAB 01/07/19 Mirabegron (Myrbetriq) 50 Mg Tab.er.24h, 50 MG PO DAILY, TAB 01/07/19 Desmopressin Acetate* (Ddavp*) 0.1 Mg Tablet, 0.1 MG PO DAILY, #60 TAB 01/07/19 Gabapentin* (Gabapentin*) 300 Mg Capsule, 300 MG PO QID, #60 CAP 01/07/19 Baclofen* (Baclofen*) 20 Mg Tablet, 20 MG PO BID, TAB 01/07/19 Primary Care Provider Care Physician No Primary SYED ROMO MD Jan 25, 2019 13:04
== END 2019-01-23 12:48 | disposition home health service (06) | DRG 57 ==
LOC: VRC 19:07
PROVIDERS: ADMIT Physical Medicine & Rehabilitation; ATTEND Internal Medicine
DX: I69.351 Hemiplegia and hemiparesis following cerebral infarction affecting right dominant side (principal); E46 Unspecified protein-calorie malnutrition; Z68.1 Body mass index [BMI] 19.9 or less, adult; N39.0 Urinary tract infection, site not specified; I69.320 Aphasia following cerebral infarction; Z85.841 Personal history of malignant neoplasm of brain; G93.9 Disorder of brain, unspecified; G40.909 Epilepsy, unspecified, not intractable, without status epilepticus; N31.9 Neuromuscular dysfunction of bladder, unspecified; B96.20 Unspecified Escherichia coli [E. coli] as the cause of diseases classified elsewhere; Z74.09 Other reduced mobility; F06.31 Mood disorder due to known physiological condition with depressive features
CPT/HCPCS: 80048; 80053; 81001; 82040; 85025; 87081; 87086; 92507; 92523; 97110; 97112; 97163; 97167; 97530; 97535; 97542; L1820